=== PATIENT | female | born 1990 | race Caucasian/White ===

== ENCOUNTER 2016-07-02 21:13 | Emergency (ER) | payer MEDICAID ==
[2016-07-02] MEDS ORDERED: PREDNISONE 20 MG TABLET PO ONE (21:21)
[2016-07-02] MEDS ORDERED: FAMOTIDINE 20 MG TABLET PO ONE (21:21)
--- NOTE | 2016-07-02 21:21 | ER Document Report ---
ED Medical Screen (RME) - General Stated Complaint: RASH Time seen by provider: 21:18 Mode of Arrival: Ambulatory Information source: Patient Notes: 26-year-old female presents to ED for rash to the face neck and upper back since yesterday. Patient states she has not eaten or drank anything different and she has not taken any new medication. She denies use of any new products. (Last menstrual period 06/18/2016 I have greeted and performed a rapid initial assessment of this patient. A comprehensive ED assessment and evaluation of the patient, analysis of test results and completion of medical decision making process will be conducted by an additional ED providers. TRAVEL OUTSIDE OF THE [place] IN LAST 30 DAYS: No - Related Data Allergies/Adverse Reactions: cefixime [From Suprax] Allergy (Mild, Verified 05/30/16 12:16) Hives Past Medical History Pulmonary Medical History: Denies: Hx Asthma, Hx Tuberculosis Neurological Medical History: Denies: Hx Seizures Endocrine Medical History: Reports: Hx Hypothyroidism Past Surgical History: Reports: Hx Cholecystectomy - Immunizations Hx Diphtheria, Pertussis, Tetanus Vaccination: Yes
[2016-07-02] MEDS ORDERED: PREDNISONE 20 MG TABLET ONE (21:24)
--- NOTE | 2016-07-02 21:54 | ER Document Report ---
ED General - General Chief Complaint: Rash Stated Complaint: RASH Mode of Arrival: Ambulatory TRAVEL OUTSIDE OF THE [place] IN LAST 30 DAYS: No - HPI Patient complains to provider of: rash Notes: Patient coming in for evaluation of a rash rashes on the upper back face and chest started yesterday and has progressively spread patient states the rash is burning and itching denies any new contact with any new substances patient does state increased stress over the last 24-48 hours. Denies fevers chills nausea vomiting difficult in breathing - Related Data Allergies/Adverse Reactions: cefixime [From Suprax] Allergy (Mild, Verified 05/30/16 12:16) Hives Past Medical History - General Information source: Patient - Social History Smoking Status: Never Smoker Frequency of alcohol use: None Drug Abuse: None Family History: Reviewed & Not Pertinent Pulmonary Medical History: Denies: Hx Asthma, Hx Tuberculosis Neurological Medical History: Denies: Hx Seizures Endocrine Medical History: Reports: Hx Hypothyroidism Renal/ Medical History: Denies: Hx Peritoneal Dialysis Past Surgical History: Reports: Hx Cholecystectomy - Immunizations Hx Diphtheria, Pertussis, Tetanus Vaccination: Yes Review of Systems - Review of Systems Constitutional: No symptoms reported EENT: No symptoms reported Cardiovascular: No symptoms reported Respiratory: No symptoms reported Gastrointestinal: No symptoms reported Genitourinary: No symptoms reported Female Genitourinary: No symptoms reported Musculoskeletal: No symptoms reported Skin: Rash Hematologic/Lymphatic: No symptoms reported Neurological/Psychological: No symptoms reported -: Yes All other systems reviewed and negative Physical Exam - Vital signs Vitals: Temp Pulse Resp BP Pulse Ox 97.6 F 80 12 116/67 98 07/02/16 21:19 07/02/16 21:19 07/02/16 21:19 07/02/16 21:19 07/02/16 21:19 Interpretation: Normal - General General appearance: Appears well, Alert - HEENT Head: Normocephalic, Atraumatic Eyes: Normal Pupils: PERRL - Respiratory Respiratory status: No respiratory distress Chest status: Nontender Breath sounds: Normal Chest palpation: Normal - Cardiovascular Rhythm: Regular Heart sounds: Normal auscultation Murmur: No - Abdominal Inspection: Normal Distension: No distension Bowel sounds: Normal Tenderness: Nontender Organomegaly: No organomegaly - Back Back: Normal, Nontender - Extremities General upper extremity: Normal inspection, Nontender, Normal color, Normal ROM , Normal temperature General lower extremity: Normal inspection, Nontender, Normal color, Normal ROM , Normal temperature, Normal weight bearing. No: Jame's sign - Neurological Neuro grossly intact: Yes Cognition: Normal Orientation: AAOx4 [place] Coma Scale Eye Opening: Spontaneous [place] Coma Scale Verbal: Oriented [place] Coma Scale Motor: Obeys Commands [place] Coma Scale Total: 15 Speech: Normal Motor strength normal: LUE, RUE, LLE, RLE Sensory: Normal - Psychological Associated symptoms: Normal affect, Normal mood - Skin Skin Temperature: Warm Skin Moisture: Dry Skin Color: Normal, Other - Patient has a erythematous blanching rash sandpaper texture consistent with hives on her face upper back and upper chest. No oral involvement Course - Re-evaluation Re-evalutation: 07/02/16 21:54 Hives Unclear etiology possibly stress-induced patient will be treated with Vistaril or Atarax and prednisone. Patient discharged home. - Vital Signs Vital signs: Temp Pulse Resp BP Pulse Ox 97.6 F 80 12 116/67 98 07/02/16 21:19 07/02/16 21:19 07/02/16 21:19 07/02/16 21:19 07/02/16 21:19 Discharge - Discharge Clinical Impression: Rash Condition: Good Disposition: HOME, SELF-CARE Instructions: Acute Urticaria ([facility]) Additional Instructions: Follow-up with your primary care physician or physician provided. Return to ER symptoms worsen. Take medications as prescribed. You may also use topical Benadryl cream calamine lotion. If Benadryl and prescribed Atarax caused too much sedation caused to be too sleepy you may take nonsedating Zyrtec or Claritin as directed Prescriptions: Hydroxyzine HCl [Atarax 25 mg Tablet] 1 - 2 tab PO QID #25 tablet Prednisone [Deltasone 20 mg Tablet] 3 tab PO DAILY 5 Days Forms: Return to Work
[2016-07-02] MEDS ORDERED: HYDROXYZINE PAMOATE 25 MG CAPSULE #4 (ER DISP) PO SCH (22:00)
[2016-07-02 22:04] VITALS: BP 109/56
== END 2016-07-02 22:02 | disposition home or self-care (01) ==
LOC: ER 21:13
DX: R21 Rash and other nonspecific skin eruption (principal)
CPT/HCPCS: 99282; J3490 ×2; J7512

== ENCOUNTER 2016-07-30 09:34 | Day surgery (SDC) | payer MEDICAID ==
[2016-07-23 09:42] LABS: HEMATOCRIT 38.9 % (36.0-47.0); HEMOGLOBIN 13.2 g/dL (12.0-15.5); HGB HCT DIFFERENCE 0.7; MEAN CORPUSCULAR HEMOGLOBIN 30.8 pg (27.0-33.4); MEAN CORPUSCULAR HGB CONC 33.9 g/dL (32.0-36.0); MEAN CORPUSCULAR VOLUME 91 fl (80-97); RED BLOOD COUNT 4.28 10^6/uL (3.72-5.28); RED CELL DISTRIBUTION WIDTH 12.3 % (11.5-14.0); WHITE BLOOD COUNT 5.3 10^3/uL (4.0-10.5)
[2016-07-23 09:44] LABS: APPEARANCE,URINE CLEAR; BILIRUBIN,URINE NEGATIVE (NEGATIVE); GLUCOSE, URINE NEGATIVE (NEGATIVE); KETONES,URINE NEGATIVE (NEGATIVE); LEUKOCYTE ESTERASE,URINE TRACE (NEGATIVE); NITRITE,URINE NEGATIVE (NEGATIVE); PROTEIN,URINE NEGATIVE (NEGATIVE); URINE SPECIFIC GRAVITY 1.017; UROBILINOGEN,URINE NEGATIVE mg/dL (<2.0)
[2016-07-23 10:02] LABS: ANION GAP 10 (5-19); BLOOD UREA NITROGEN 17 mg/dL (7-20); CALCIUM 9.2 mg/dL (8.4-10.2); CARBON DIOXIDE 27 mmol/L (22-30); CHLORIDE 104 mmol/L (98-107); CREATININE RESULT 0.58 mg/dL (0.52-1.25); GLUCOSE 93 mg/dL (75-110); POTASSIUM 4.4 mmol/L (3.6-5.0); SODIUM 141.1 mmol/L (137-145)
[~2016-07-30 09:34] MED LIST: BUPIVACAINE HCL 0.5%-EPI 1:200000 INJ/PF 30 ML VIAL ONE; CEFAZOLIN 2 GM/D5W RTU 2 GM/50 ML RTUPB IV PRN; EPINEPHRINE INJ 30 MG/30 ML VIAL ONE; LACTATED RINGERS 1000 ML IV PRN; LIDOCAINE 0.5% INJ-PF (5 MG/ML) 50 ML SDV SUBCUT PRN; ONDANSETRON HCL INJ/PF 4 MG/2 ML SDV ONE; SUCCINYLCHOLINE CHLORIDE INJ 200 MG/10 ML VIAL ONE
[2016-07-30] MEDS ORDERED: EPINEPHRINE INJ/PF 1 MG/1 ML AMPULE ONE ×2 (09:41→14:02)
[2016-07-30] MEDS ORDERED: BUPIVACAINE HCL 0.5%-EPI 1:200000 INJ/PF 30 ML VIAL ONE (09:41)
[2016-07-30] MEDS ORDERED: HYDROMORPHONE HCL INJ/PF 2 MG/ML AMPULE ONE (12:11)
[2016-07-30] MEDS ORDERED: EPHEDRINE SULFATE INJ 50 MG/1 ML AMPULE ONE (12:11)
[2016-07-30] MEDS ORDERED: MIDAZOLAM 2 MG/2 ML INJ ONE (12:11)
[2016-07-30] MEDS ORDERED: FENTANYL CITRATE INJ/PF 250 MCG/5 ML AMPULE ONE (12:11)
[2016-07-30] MEDS ORDERED: ACETAMINOPHEN 100 ML IV ONE (12:12)
[2016-07-30] MEDS ORDERED: PROPOFOL INJ 200 MG/20 ML VIAL IV ONE (12:12)
[2016-07-30] MEDS ORDERED: FENTANYL CITRATE INJ/PF 100 MCG/2 ML AMPUL IV PRN ×3 (12:53)
[2016-07-30] MEDS ORDERED: OXYCODONE-ACETAMINOPHEN 5-325 MG TABLET PO PRN ×3 (12:53→16:30)
[2016-07-30] MEDS ORDERED: DIPHENHYDRAMINE HCL 50 MG/ML VIAL IV PRN (12:53)
[2016-07-30] MEDS ORDERED: PROMETHAZINE HCL INJ 25 MG/1 ML VIAL IV PRN ×2 (12:53)
[2016-07-30] MEDS ORDERED: MORPHINE SULFATE 10 MG/ML INJ IV PRN (12:53)
[2016-07-30] MEDS ORDERED: MEPERIDINE HCL/PF INJ 25 MG/1 ML DISP.SYRIN IV PRN (12:53)
[2016-07-30] MEDS: FENTANYL CITRATE INJ/PF 100 MCG/2 ML AMPUL ONE ×4 (15:03→15:35)
--- NOTE | 2016-07-30 15:08 | Operative Report ---
Operative Report DATE OF SURGERY: 07/30/16 PREOPERATIVE DIAGNOSIS: Right anterior cruciate ligament tear and lateral meniscus tear POSTOPERATIVE DIAGNOSIS: Same OPERATION: Right knee arthroscopy with anterior cruciate ligament reconstruction using Achilles allograft. Partial lateral meniscectomy SURGEON: NE COL[place]GA ANESTHESIA: GA TISSUE REMOVED OR ALTERED: None COMPLICATIONS: None ESTIMATED BLOOD LOSS: 10 mL PROCEDURE: Patient was brought to the operating room and successfully induced and intubated in a the supine position. Once the tube was secured a thigh tourniquet was applied to the right lower extremity was prepped and draped in a normal surgical fashion. Timeout was done identifying the right knee has a correct site. The extremity was exsanguinated with an Esmarch and then the tourniquet was inflated at 300 mmHg 0.25% of Marcaine was injected into the anticipated portal sites. 11 blade was used to establish the anterolateral portal. Scope was introduced and the capsule was distended with sterile saline solution. Under direct visualization the anteromedial portal sites was established first by applying a spinal needle and then established with the 11 blade. Probe was introduced and a diagnostic scope was done. And noted the patient had almost complete rupture of the anterior cruciate ligament with just a few strands attached. In the lateral compartment I was able to visualize just a small tear of the posterior horn allow meniscus. The remaining posterior horn was still attached to the root. At this point I used the combination of 5.5 mm shaver and 50 radiofrequency ablator to do my debridement of the torn anterior cruciate ligament and expose the lateral wall. I used a chondral pick to celina where I would like to place my femoral tunnel. This was confirmed with the medial [id number] guide. I flexed the knee as much as possible and use my spade tip guidepin and drilled through. I was able to measure about a 30 mm tunnel before I pierced the cortex and passed the pin through the lateral aspect of the thigh. I used the 10 mm low-profile reamer then to do my femoral tunnel and stopped at 25 mm in depth. I used a shaver then to clean out the bony debris. I visualized the tunnel with a camera and make sure had a back wall and did not pierced the lateral cortex. At this point I fed a FiberWire through the eyelet and passed it through the lateral aspect of the thigh. This FiberWire were then later on the shuttle through the tibial tunnel to shuttle the graft. In the meantime it was clamped outside the skin. At this point I grabbed my retro-cutter guide which was marked at [address] on the anterior cruciate ligament footprint on the tibial side. This had been cleaned off with a shaver and bur and radiofrequency ablator as well. I used the scope anterior horn of the lateral meniscus as a guide as well as 7 mm anterior to the PCL. Once I was happy with the placement I did a medial incision and measured the tibial tunnel to be 32 mm length. Once again I use the shaver to clean out the debris in the knee. The Achilles was preparing the back table and the made sure that I was able to pass through it 10 mm tunnel with the bone plug side and the tendinous portion. The graft had been placed in a moist sponge and ready for insertion once the tunnels were completed. I used a probe to grabbed the have the portion of the FiberWire suture that was left in the femoral tunnel and passed it through the tibial tunnel. At this point we shuttled the Achilles tendon allograft through the tibial tunnel into the femoral tunnel successfully using the bone plug to fit nicely in the femoral tunnel. I proceeded to notch the tunnel and placed a nitinol wire. I placed a 7 x 23mm bicomposite screw securing the bone plug in the femoral tunnel. I then turned my attention to the tibial tunnel where I notched it and then placed a nitinol wire for placement of the screw. While holding the leg in a reverse Wilson position by my integration assistant I pulled tension on the tibial side of the graft and placed my interference screw securing the graft. Wilson was used to showing good endpoint and minimal translation. Scope was introduced and I used a probe to check the tension on the anterior cruciate ligament graft. I was satisfied with the tension so at this point fluid was removed from the knee and the instruments were removed. I proceeded to close my 2 portal sites with 3-0 nylon and the tibial incision with 0 Vicryl to Vicryl and 2-0 nylon. Xeroform, 4 x 4, AVD pad, Sof-Rol was applied and then overwrapped with an Rian bandage. Tourniquet was let down and the drapes were removed. Patient was extubated and sent to PACU in stable condition.
--- NOTE | 2016-07-30 15:10 | PDOC DISCHARGE SUMMARY ---
Discharge Summary (SDC) - Discharge Final Diagnosis: Status post right anterior cruciate ligament reconstruction and partial lateral meniscectomy Date of Surgery: 07/30/16 Discharge Date: 07/30/16 Condition: Good Treatment or Instructions: Patient instructed to follow up in 10-14 days. Patient instructed to keep dressing dry clean and intact for 4 days and then allowed to remove. At that point patient can shower and apply Band-Aids as needed. Patient can weight-bear as tolerated and do range of motion exercises as tolerated. Crutches for support and safety. Can wean crutches once stable on his feet. Patient instructed to call the office if patient develops fevers chills redness and drainage from the surgical sites. Prescriptions: Oxycodone HCl/Acetaminophen [Percocet 5-325 mg Tablet] 1 - 2 tab PO ASDIR PRN # 60 tablet PRN Reason: Discharge Diet: As Tolerated Respiratory Treatments at Home: Deep Breathing/Coughing Discharge Activity: No Driving, No Lifting/Push/Pulling, Walk Frequently Adaptive Devices on Discharge: Axillary Crutches Report the Following to Your Physician Immediately: Shortness of Breath, Vomiting, Fever over 101 Degrees, Unusual Bleeding, Redness, Swelling, Warmth, Drainage-Yellow, Drainage-Green, Drainage-Foul Smelling
[2016-07-30] MEDS ORDERED: MORPHINE SULFATE 10 MG/ML INJ ONE (15:17)
[2016-07-30] MEDS ORDERED: ONDANSETRON HCL INJ/PF 4 MG/2 ML SDV ONE (15:59)
[2016-07-30] MEDS ORDERED: OXYCODONE-ACETAMINOPHEN 5-325 MG TABLET ONE (16:28)
[2016-07-30] MEDS ORDERED: PROMETHAZINE HCL INJ 25 MG/1 ML VIAL ONE (16:32)
[2016-07-30 18:27] VITALS: BP 126/64
== END 2016-07-30 18:15 | disposition home or self-care (01) ==
LOC: OROUT 09:34
PROVIDERS: ATTEND Orthopaedic Surgery
PROC: 0SBC4ZZ Excision of Right Knee Joint, Percutaneous Endoscopic Approach (ICD-10-PCS; 2016-07-30)
PROC: 0MUN4JZ Supplement Right Knee Bursa and Ligament with Synthetic Substitute, Percutaneous Endoscopic Approach (ICD-10-PCS; principal; 2016-07-30 11:45)
DX: S83.511D Sprain of anterior cruciate ligament of right knee, subsequent encounter (principal); S83.282D Other tear of lateral meniscus, current injury, left knee, subsequent encounter; X58.XXXD Exposure to other specified factors, subsequent encounter; Z88.1 Allergy status to other antibiotic agents
CPT/HCPCS: 36415; 85027; 81025; 80048; 81001; 29888; 29881; C1713; J2250; J3490; J0171; J3010 ×2; J2270; J1170; J2550; J0330; J2405; J2704; J0690; J0131; 1400

== ENCOUNTER 2016-09-27 01:06 | Emergency (ER) | payer MEDICAID ==
[2016-09-27] MEDS ORDERED: NORMAL SALINE 1000 ML 1,000 ML IV ONE (02:14)
[2016-09-27] MEDS ORDERED: ONDANSETRON HCL INJ/PF 4 MG/2 ML SDV IV ONE (02:16)
--- NOTE | 2016-09-27 02:16 | ER Document Report ---
ED General - General Chief Complaint: Abdominal Pain Stated Complaint: RIGHT SIDE ABDOMINAL PAIN Notes: Patient is a 26-year-old female presents with complaint of right lower quadrant abdominal pain. No fevers. Some vomiting. Some diarrhea. No blood or stool. Patient says she saw her doctor and to stay and she had some pain at that time but is very mild. She says pain is gradually worsened since Wednesday. No other complaints at this time. She denies any abnormal vaginal discharge or bleeding. No dysuria or urinary frequency. TRAVEL OUTSIDE OF THE [place] IN LAST 30 DAYS: No - Related Data Allergies/Adverse Reactions: cefixime [From Suprax] Allergy (Mild, Verified 07/23/16 08:28) Hives Past Medical History - Social History Smoking Status: Unknown if Ever Smoked Frequency of alcohol use: None Drug Abuse: None Family History: Reviewed & Not Pertinent - Past Medical History Cardiac Medical History: Denies: Hx Coronary Artery Disease, Hx Heart Attack, Hx Hypertension Pulmonary Medical History: Denies: Hx Asthma, Hx Bronchitis, Hx COPD, Hx Pneumonia, Hx Tuberculosis Neurological Medical History: Denies: Hx Cerebrovascular Accident, Hx Seizures Endocrine Medical History: Reports: Hx Hypothyroidism Renal/ Medical History: Denies: Hx Peritoneal Dialysis Musculoskeltal Medical History: Denies Hx Arthritis Past Surgical History: Reports: Hx Cholecystectomy - Immunizations Hx Diphtheria, Pertussis, Tetanus Vaccination: No Review of Systems - Review of Systems Notes: My Normal Review Basic REVIEW OF SYSTEMS: CONSTITUTIONAL : Denies fever, chills, or sweats. Denies recent illness. EENT: Denies eye, ear, throat, or mouth pain or symptoms. Denies nasal or sinus congestion. RESPIRATORY: Denies cough, cold, or chest congestion. Denies shortness of breath, difficulty breathing, or wheezing. GASTROINTESTINAL: Some right lower quadrant tenderness. Some vomiting and diarrhea. GENITOURINARY: Denies difficulty urinating, painful urination, burning, frequency, or blood in urine. FEMALE GENITOURINARY: Denies vaginal bleeding, abnormal or irregular periods. MUSCULOSKELETAL: Denies neck or back pain or joint pain or swelling. SKIN: Denies rash or skin lesions. NEUROLOGICAL: Denies altered mental status or loss of consciousness. Denies headache. Denies weakness or paralysis or loss of use of either side. Denies problems with gait or speech. Denies sensory or motor loss. ALL OTHER SYSTEMS REVIEWED AND NEGATIVE. Physical Exam - Vital signs Vitals: Temp Pulse Resp BP Pulse Ox 98.4 F 95 17 140/62 H 100 09/27/16 01:10 09/27/16 01:10 09/27/16 01:10 09/27/16 01:10 09/27/16 01:10 - Notes Notes: General Appearance: Well nourished, alert, cooperative, no acute distress, mild obvious discomfort. Well-appearing. Vitals: reviewed, See vital signs table. Head: no swelling or tenderness to the head Eyes: PERRL, EOMI, Conjuctiva clear Mouth: No decreasd moisture Lungs: No wheezing, No rales, No rhonci, No accessory muscle use, good air exchange bilaterally. Heart: Normal rate, Regular rythm, No murmur, no rub Abdomen: Normal BS, soft, No rigidity, mild lower quadrant abdominal tenderness to palpation, No guarding, no rebound, no abdominal masses, no organomegaly Extremities: strength 5/5 in all extremities, good pulses in all extremities, no swelling or tenderness in the extremities, no edema. Skin: warm, dry, appropriate color, no rash Neuro: speech clear, oriented x 3, normal affect, responds appropriately to questions. Course - Vital Signs Vital signs: Temp Pulse Resp BP Pulse Ox 98.2 F 80 14 113/52 L 96 09/27/16 04:14 09/27/16 04:14 09/27/16 04:14 09/27/16 04:14 09/27/16 04:14 - Laboratory Result Diagrams: 09/27/16 01:55 09/27/16 01:55 Laboratory results interpreted by me: 09/27/16 09/27/16 09/27/16 01:55 01:55 03:28 Hgb 11.7 L Hct 33.7 L Sodium 146.1 H Potassium 3.1 L Carbon Dioxide 31 H AST 42 H ALT 63 H Urine Ketones TRACE H Ur Leukocyte Esterase LARGE H - Transfer of Care Notes: 09/27/16 05:44 Since abdomen is minimally tender to palpation reevaluation. Her pain is in the right lower quadrant that is mild. She has no leukocytosis. I think appendicitis is unlikely being that the patient has had the pain for 6 days now and still has no leukocytosis or fever. This would be highly unlikely for appendicitis. Urinalysis does show large look slightest trace. This could be a contaminant or could be signs of UTI. I informed her we'll place her anabolic for this. I talked about the options for treatment him T workup for abdominal pain. Did tell her that we could do a CT scan today to further will appendicitis; however, I informed her I think his appendicitis is unlikely and that the skin would be a large amount of radiation to her at such young age. Informed her the other option would be to return to ER in one to 2 days for close reevaluation if she continued to have any pain. Patient agrees with going home and she wants to return for reevaluation. I encourage return to ER immediately if she has worsening pain, fevers, or feels unwell. Patient agrees with plan and will be discharged home. Dictation of this chart was performed using voice recognition software; therefore, there may be some unintended grammatical errors. Discharge - Discharge Clinical Impression: Pyuria Abdominal pain Qualifiers: Abdominal location: right lower quadrant Qualified Code(s): R10.31 - Right lower quadrant pain Condition: Good Disposition: HOME, SELF-CARE Additional Instructions: Observation for Appendicitis At this time, the abdominal pain does not seem to be appendicitis. Our next "test" will be passage of time. If you have early appendicitis, signs will appear to help us make the diagnosis. Most of the time, the pain goes away. In these cases, the pain is usually due to a virus in the lymph glands near the appendix, or due to an ovarian cyst or ovulation. Unless the pain is gone, you should come back for a recheck. This is usually done in 24- 48 hours. Be sure you understand your follow-up instructions. Come back immediately if: (1) the pain becomes much more severe and sharply increases with movement or coughing, (2) vomiting becomes frequent, (3) there is blood in the vomit, urine, or bowel movements, (4) there are shaking chills or fever, or (5) the abdomen becomes more distended or swollen. Please return to ER immediately if you have fevers, worsening pain, or recurrent vomiting. If you still have pain after 24-48 hours, it is important that you return to the ER for reevaluation. Please take antibiotics as prescribed. Prescriptions: Ciprofloxacin HCl [Cipro 500 mg Tablet] 500 mg PO BID #10 tablet Ondansetron [Zofran Odt 4 mg Tablet] 1 tab PO Q4H PRN #15 tab.rapdis PRN Reason: For Nausea/Vomiting
[2016-09-27 02:50] LABS: ABSOLUTE LYMPHOCYTES (AUTO) 1.9 10^3/uL (0.5-4.7); ABSOLUTE MONOCYTES (AUTO) 0.3 10^3/uL (0.1-1.4); BASOPHILS % (AUTO) 0.3 % (0-2); EOSINOPHILS % (AUTO) 0.7 % (0-6); HEMATOCRIT 33.7 % (36.0-47.0); HEMOGLOBIN 11.7 g/dL (12.0-15.5); HGB HCT DIFFERENCE 1.4; LYMPHOCYTES % (AUTO) 35.4 % (13-45); MEAN CORPUSCULAR HEMOGLOBIN 31.2 pg (27.0-33.4); MEAN CORPUSCULAR HGB CONC 34.8 g/dL (32.0-36.0); MEAN CORPUSCULAR VOLUME 90 fl (80-97); MONOCYTES % (AUTO) 6.5 % (3-13); RED BLOOD COUNT 3.76 10^6/uL (3.72-5.28); RED CELL DISTRIBUTION WIDTH 11.9 % (11.5-14.0); SEGMENTED NEUTROPHILS % (AUTO) 57.1 % (42-78); WHITE BLOOD COUNT 5.2 10^3/uL (4.0-10.5)
[2016-09-27 03:12] LABS: ALANINE AMINOTRANSFERASE 63 U/L (9-52); ALKALINE PHOSPHATASE 67 U/L (38-126); ANION GAP 9 (5-19); ASPARTATE AMINO TRANSFERASE 42 U/L (14-36); BILIRUBIN,DIRECT 0.3 mg/dL (0.0-0.4); BILIRUBIN,TOTAL 0.5 mg/dL (0.2-1.3); BLOOD UREA NITROGEN 13 mg/dL (7-20); CALCIUM 8.8 mg/dL (8.4-10.2); CARBON DIOXIDE 31 mmol/L (22-30); CHLORIDE 106 mmol/L (98-107); CREATININE RESULT 0.58 mg/dL (0.52-1.25); GLUCOSE 100 mg/dL (75-110); POTASSIUM 3.1 mmol/L (3.6-5.0); SODIUM 146.1 mmol/L (137-145); TOTAL PROTEIN 6.9 g/dL (6.3-8.2)
[2016-09-27 03:50] LABS: APPEARANCE,URINE CLOUDY; BILIRUBIN,URINE NEGATIVE (NEGATIVE); GLUCOSE, URINE NEGATIVE (NEGATIVE); KETONES,URINE TRACE mg/dL (NEGATIVE); LEUKOCYTE ESTERASE,URINE LARGE (NEGATIVE); NITRITE,URINE NEGATIVE (NEGATIVE); PROTEIN,URINE NEGATIVE (NEGATIVE); URINE SPECIFIC GRAVITY 1.009; UROBILINOGEN,URINE NEGATIVE mg/dL (<2.0)
[2016-09-27] MEDS ORDERED: POTASSIUM CHLORIDE 10 MEQ TABLET.SA PO ONE (03:59)
[2016-09-27 04:19] VITALS: BP 113/52
== END 2016-09-27 04:19 | disposition home or self-care (01) ==
LOC: ER 01:06
DX: N39.0 Urinary tract infection, site not specified (principal); R10.31 Right lower quadrant pain; R11.10 Vomiting, unspecified; R19.7 Diarrhea, unspecified; Z88.1 Allergy status to other antibiotic agents; Z90.49 Acquired absence of other specified parts of digestive tract
CPT/HCPCS: 99284; 96361; 96374; 36415; 84703; 85025; 80053; 81001; J2405; J7030

== ENCOUNTER 2017-03-24 11:13 | Emergency (ER) | payer MEDICAID ==
[2017-03-24] MEDS ORDERED: BENZONATATE 100 MG CAPSULE PO ONE (11:46)
--- NOTE | 2017-03-24 12:22 | RADIOLOGY REPORT (SQ) ---
EXAM DESCRIPTION: CHEST PA/LAT COMPLETED DATE/TIME: 03/24/2017 12:07 pm REASON FOR STUDY: cough/sob COMPARISON: Toe view chest 09/17/2009 EXAM PARAMETERS: NUMBER OF VIEWS: two views TECHNIQUE: Digital Frontal and Lateral radiographic views of the chest acquired. RADIATION DOSE: NA LIMITATIONS: none FINDINGS: LUNGS AND PLEURA: No opacities, masses or pneumothorax. No pleural effusion. MEDIASTINUM AND HILAR STRUCTURES: No masses or contour abnormalities. HEART AND VASCULAR STRUCTURES: Heart normal size. No evidence for failure. BONES: No acute findings. HARDWARE: Clips right upper quadrant post cholecystectomy true OTHER: No other significant finding. IMPRESSION: NO SIGNIFICANT RADIOGRAPHIC FINDING IN THE CHEST. TECHNICAL DOCUMENTATION: JOB ID: [id number] [email or web address]- All Rights Reserved
--- NOTE | 2017-03-24 12:50 | ER Document Report ---
ED General - General Chief Complaint: Cough Stated Complaint: COUGH Time Seen by Provider: 03/24/17 11:37 Mode of Arrival: Ambulatory Information source: Patient Notes: Patient presents with cough cold and congestion for 2-3 days. She is also had some subjective fever and chills. She has got some sharp bilateral chest pain. It is worse with coughing or moving. It is moderate in intensity. It is constant. Some nausea but no vomiting or diarrhea. TRAVEL OUTSIDE OF THE [place] IN LAST 30 DAYS: No - Related Data Allergies/Adverse Reactions: cefixime [From Suprax] Allergy (Mild, Verified 07/23/16 08:28) Hives Past Medical History - Social History Smoking Status: Never Smoker Chew tobacco use (# tins/day): No Frequency of alcohol use: None Drug Abuse: None Family History: Reviewed & Not Pertinent - Past Medical History Cardiac Medical History: Denies: Hx Coronary Artery Disease, Hx Heart Attack, Hx Hypertension Pulmonary Medical History: Denies: Hx Asthma, Hx Bronchitis, Hx COPD, Hx Pneumonia, Hx Tuberculosis Neurological Medical History: Denies: Hx Cerebrovascular Accident, Hx Seizures Endocrine Medical History: Reports: Hx Hypothyroidism Renal/ Medical History: Denies: Hx Peritoneal Dialysis Musculoskeltal Medical History: Denies Hx Arthritis Past Surgical History: Reports: Hx Cholecystectomy - Immunizations Hx Diphtheria, Pertussis, Tetanus Vaccination: No Review of Systems - Review of Systems Constitutional: Chills, Fever, Malaise Cardiovascular: Chest pain, Dyspnea Respiratory: Cough, Sputum Gastrointestinal: denies: Diarrhea, Vomiting Physical Exam - Vital signs Vitals: Temp Pulse Resp BP Pulse Ox 98.4 F 81 15 126/67 H 98 03/24/17 11:15 03/24/17 11:15 03/24/17 11:15 03/24/17 11:15 03/24/17 11:15 Interpretation: Normal - General General appearance: Appears well, Alert - HEENT Head: Normocephalic, Atraumatic Eyes: Normal Pupils: PERRL - Respiratory Respiratory status: No respiratory distress Chest status: Nontender Breath sounds: Normal Chest palpation: Normal - Cardiovascular Rhythm: Regular Heart sounds: Normal auscultation Murmur: No - Abdominal Inspection: Normal Distension: No distension Bowel sounds: Normal Tenderness: Nontender Organomegaly: No organomegaly - Back Back: Normal, Nontender - Extremities General upper extremity: Normal inspection, Nontender, Normal color, Normal ROM , Normal temperature General lower extremity: Normal inspection, Nontender, Normal color, Normal ROM , Normal temperature, Normal weight bearing. No: Jame's sign - Neurological Neuro grossly intact: Yes Cognition: Normal Orientation: AAOx4 [place] Coma Scale Eye Opening: Spontaneous [place] Coma Scale Verbal: Oriented [place] Coma Scale Motor: Obeys Commands [place] Coma Scale Total: 15 Speech: Normal Motor strength normal: LUE, RUE, LLE, RLE Sensory: Normal - Psychological Associated symptoms: Normal affect, Normal mood - Skin Skin Temperature: Warm Skin Moisture: Dry Skin Color: Normal Course - Vital Signs Vital signs: Temp Pulse Resp BP Pulse Ox 98.8 F 83 18 122/65 99 03/24/17 12:54 03/24/17 12:54 03/24/17 12:54 03/24/17 12:54 03/24/17 12:54 - Diagnostic Test Radiology reviewed: Reports reviewed - xray unremarkable Discharge - Discharge Clinical Impression: Upper respiratory infection Condition: Stable Disposition: HOME, SELF-CARE Instructions: Acetaminophen, Fever ([facility]), Upper Respiratory Illness ([facility]) Additional Instructions: please follow up with your primary doctor as soon as possible Your blood pressure is slightly elevated, please have this rechecked within the next week Prescriptions: Benzonatate [Tessalon Perle 100 mg Capsule] 200 mg PO Q8HP PRN #40 cap PRN Reason: Amoxicillin 500 mg PO TID #21 capsule Clarithromycin [Biaxin 500 mg Tablet] 1 tab PO Q12 #14 tab Hydrocodone/Acetaminophen [Clare 5-325 mg Tablet] 1 tab PO Q6 #12 tablet Forms: Elevated Blood Pressure, Return to Work Referrals: OWEN CANCHOLA MD [COMMUNITY BASED STAFF] - Follow up as needed
[2017-03-24 12:55] VITALS: BP 122/65
== END 2017-03-24 12:56 | disposition home or self-care (01) ==
LOC: ER 11:13
DX: J06.9 Acute upper respiratory infection, unspecified (principal); R05 Cough; R09.81 Nasal congestion; R50.9 Fever, unspecified; R11.0 Nausea
CPT/HCPCS: 71020; 99283

== ENCOUNTER 2017-12-26 21:50 | Emergency (ER) | payer SELFPAY ==
--- NOTE | 2017-12-26 22:19 | RADIOLOGY REPORT (SQ) ---
EXAM DESCRIPTION: ELBOW RIGHT OVER 2 VIEWS COMPLETED DATE/TIME: 12/26/2017 10:07 pm REASON FOR STUDY: Pain s/p fall COMPARISON: None. NUMBER OF VIEWS: Four views. TECHNIQUE: AP, lateral, and both oblique radiographic images acquired of the right elbow. LIMITATIONS: None. FINDINGS: MINERALIZATION: Normal. BONES: No acute fracture or dislocation. No worrisome bone lesions. JOINT: No effusion. SOFT TISSUES: No soft tissue swelling. No foreign body. OTHER: No other significant finding. IMPRESSION: NO RADIOGRAPHIC EVIDENCE OF ACUTE INJURY. TECHNICAL DOCUMENTATION: JOB ID: [id number] [employer]- All Rights Reserved Reading location - IP/workstation name: [email or web address]
--- NOTE | 2017-12-26 22:21 | RADIOLOGY REPORT (SQ) ---
EXAM DESCRIPTION: WRIST RIGHT 3 VIEWS COMPLETED DATE/TIME: 12/26/2017 10:07 pm REASON FOR STUDY: Pain s/p fall COMPARISON: None. NUMBER OF VIEWS: Three views. TECHNIQUE: AP, lateral, and oblique radiographic images acquired of the right wrist. LIMITATIONS: None. FINDINGS: MINERALIZATION: Normal. BONES: No acute fracture or dislocation. No worrisome bone lesions. Normal alignment. SOFT TISSUES: No soft tissue swelling. No foreign body. OTHER: No other significant finding. IMPRESSION: NO RADIOGRAPHIC EVIDENCE OF ACUTE INJURY. TECHNICAL DOCUMENTATION: JOB ID: [id number] [place]-72 2010 [employer]- All Rights Reserved Reading location - IP/workstation name: [email or web address]
[2017-12-26] MEDS ORDERED: HYDROCODONE/ACETAMINOPHEN 5-325 MG TABLET PO ONE (22:53)
--- NOTE | 2017-12-26 22:53 | ER Document Report ---
ED Extremity Problem, Upper - General Chief Complaint: Arm Injury Stated Complaint: FALL,WRIST AND ELBOW PAIN Time Seen by Provider: 12/26/17 22:38 Mode of Arrival: Ambulatory Information source: Patient Notes: Pt is a 27 year old female who presents to the ER today for right wrist/forearm pain after falling at home, tripping on something on her floor, and reaching her right hand to her side/backwards to catch herself as she fell. She states it 's hard for her to extend her elbow completely because of pain. She denies any numbness/tingling. TRAVEL OUTSIDE OF THE [place] IN LAST 30 DAYS: No - Related Data Allergies/Adverse Reactions: cefixime [From Suprax] Allergy (Mild, Verified 07/23/16 08:28) Hives Past Medical History - General Information source: Patient - Social History Smoking Status: Unknown if Ever Smoked Family History: Reviewed & Not Pertinent Patient has suicidal ideation: No Patient has homicidal ideation: No - Past Medical History Cardiac Medical History: Denies: Hx Coronary Artery Disease, Hx Heart Attack, Hx Hypertension Pulmonary Medical History: Denies: Hx Asthma, Hx Bronchitis, Hx COPD, Hx Pneumonia, Hx Tuberculosis Neurological Medical History: Denies: Hx Cerebrovascular Accident, Hx Seizures Endocrine Medical History: Reports: Hx Hypothyroidism Renal/ Medical History: Denies: Hx Peritoneal Dialysis Musculoskeletal Medical History: Denies Hx Arthritis Past Surgical History: Reports: Hx Cholecystectomy - Immunizations Hx Diphtheria, Pertussis, Tetanus Vaccination: No Review of Systems - Review of Systems Constitutional: No symptoms reported EENT: No symptoms reported Cardiovascular: No symptoms reported Respiratory: No symptoms reported Gastrointestinal: No symptoms reported Genitourinary: No symptoms reported Female Genitourinary: No symptoms reported Musculoskeletal: See HPI Skin: No symptoms reported Hematologic/Lymphatic: No symptoms reported Neurological/Psychological: No symptoms reported Physical Exam - Vital signs Vitals: Temp Pulse Resp BP Pulse Ox 99.1 F 72 16 109/60 98 12/26/17 22:13 12/26/17 22:13 12/26/17 22:13 12/26/17 22:13 12/26/17 22:13 - Notes Notes: PHYSICAL EXAMINATION: GENERAL:uncomfortable appearing, holding right arm, but in no acute distress. HEAD: Atraumatic, normocephalic. EYES: Pupils equal round and reactive to light, extraocular movements intact, sclera anicteric, conjunctiva are normal. ENT: ear canals without erythema or foreign body, TMs pearly reeves with good bony landmarks, nares normal, oropharynx clear without exudates. Moist mucous membranes. NECK: Normal range of motion, supple without lymphadenopathy LUNGS: CTAB and equal. No wheezes rales or rhonchi. HEART: Regular rate and rhythm without murmurs NEUROLOGICAL: Cranial nerves grossly intact. Normal sensory/motor exams. extremities: right olecranon process tenderness, right forearm tenderness entirely, right dorsal wrist tenderness, no edema/erythema or ecchymoses, good instructor psychiatric aide strength, good capillary refill <3 seconds, normal sensation PSYCH: Normal mood, normal affect. SKIN: Warm, Dry, normal turgor, no rashes or lesions noted Course - Re-evaluation Re-evalutation: 12/27/17 16:30 wrist and elbow x ray negative for any acute pathology. - Vital Signs Vital signs: Temp Pulse Resp BP Pulse Ox 98.5 F 65 18 116/65 97 12/26/17 23:07 12/26/17 23:07 12/26/17 23:07 12/26/17 23:07 12/26/17 23:07 Discharge - Discharge Clinical Impression: Elbow injury Qualifiers: Encounter type: initial encounter Laterality: right Qualified Code(s): S59.901A - Unspecified injury of right elbow, initial encounter Wrist injury Qualifiers: Encounter type: initial encounter Laterality: right Qualified Code(s): S69.91XA - Unspecified injury of right wrist, hand and finger(s), initial encounter Condition: Stable Disposition: HOME, SELF-CARE Additional Instructions: Return immediately for any new or worsening symptoms. Follow up with primary care provider, call tomorrow to make followup appointment. Prescriptions: Ibuprofen [Motrin 800 mg Tablet] 800 mg PO Q8H PRN #30 tab PRN Reason: Forms: Return to Work
[2017-12-26 23:42] VITALS: BP 116/65
== END 2017-12-26 23:11 | disposition home or self-care (01) ==
LOC: ER 21:50
DX: S69.91XA Unspecified injury of right wrist, hand and finger(s), initial encounter (principal); S59.901A Unspecified injury of right elbow, initial encounter; W01.0XXA Fall on same level from slipping, tripping and stumbling without subsequent striking against object, initial encounter; Y92.009 Unspecified place in unspecified non-institutional (private) residence as the place of occurrence of the external cause; Z88.1 Allergy status to other antibiotic agents
CPT/HCPCS: 99283

== ENCOUNTER 2018-03-15 13:33 | Emergency (ER) | payer SELFPAY ==
--- NOTE | 2018-03-15 14:23 | ER Document Report ---
ED Medical Screen (RME) - General Chief Complaint: Abdominal Pain Stated Complaint: ABDOMINAL PAIN Time Seen by Provider: 03/15/18 14:20 Mode of Arrival: Ambulatory Information source: Patient Notes: 28-year-old female presents with complaint of left upper quadrant abdominal pain , nausea, vomiting, diarrhea that started 1 week prior to arrival. Patient admits to subjective fever. She is currently menstruating. She has a surgical history of cholecystectomy. I have greeted and performed a rapid initial assessment of this patient. A comprehensive ED assessment and evaluation of the patient, analysis of test results and completion of medical decision making process we will be contacted by additional ED providers. PHYSICAL EXAMINATION: Vital signs reviewed GENERAL: ill-appearing, well-nourished and in no acute distress. LUNGS: No respiratory distress Musculoskeletal: Normal range of motion NEUROLOGICAL: Normal speech, normal gait. PSYCH: Normal mood, normal affect. SKIN: Warm, Dry, normal turgor, no rashes or lesions noted. TRAVEL OUTSIDE OF THE [place] IN LAST 30 DAYS: No - HPI Onset: Last week Onset/Duration: Constant Quality of pain: Throbbing Severity: Mild Associated Symptoms: Diarrhea, Nausea, Vomiting Exacerbated by: Denies Relieved by: Denies Similar symptoms previously: No Recently seen / treated by doctor: No - Related Data Smoking: Non-smoker Frequency of alcohol use: None Drug Abuse: None Allergies/Adverse Reactions: cefixime [From Suprax] Allergy (Mild, Verified 03/15/18 14:22) Hives Past Medical History - Social History Chew tobacco use (# tins/day): No Frequency of alcohol use: Occasional Drug Abuse: None - Past Medical History Cardiac Medical History: Denies: Hx Coronary Artery Disease, Hx Heart Attack, Hx Hypertension Pulmonary Medical History: Denies: Hx Asthma, Hx Bronchitis, Hx COPD, Hx Pneumonia, Hx Tuberculosis Neurological Medical History: Denies: Hx Cerebrovascular Accident, Hx Seizures Endocrine Medical History: Reports: Hx Hypothyroidism Renal/ Medical History: Denies: Hx Peritoneal Dialysis Musculoskeltal Medical History: Denies Hx Arthritis Past Surgical History: Reports: Hx Cholecystectomy, Hx Orthopedic Surgery - acl - Immunizations Hx Diphtheria, Pertussis, Tetanus Vaccination: No Physical Exam - Vital signs Vitals: Temp Pulse Resp BP Pulse Ox 98.8 F 55 L 16 119/69 99 03/15/18 13:55 03/15/18 13:55 03/15/18 13:55 03/15/18 13:55 03/15/18 13:55 Course - Vital Signs Vital signs: Temp Pulse Resp BP Pulse Ox 98.8 F 55 L 16 119/69 99 03/15/18 13:55 03/15/18 13:55 03/15/18 13:55 03/15/18 13:55 03/15/18 13:55
[2018-03-15] MEDS ORDERED: ONDANSETRON 4 MG TAB.RAPDIS PO ONE ×2 (14:24→17:14)
[2018-03-15 14:57] LABS: ABSOLUTE EOSINOPHILS # (AUTO) 0.1 10^3/uL (0.0-0.6); ABSOLUTE MONOCYTES (AUTO) 0.4 10^3/uL (0.1-1.4); BASOPHILS % (AUTO) 0.5 % (0-2); EOSINOPHILS % (AUTO) 1.5 % (0-6); HEMATOCRIT 37.5 % (36.0-47.0); HEMOGLOBIN 13.2 g/dL (12.0-15.5); LYMPHOCYTES % (AUTO) 36.4 % (13-45); MEAN CORPUSCULAR HEMOGLOBIN 30.8 pg (27.0-33.4); MEAN CORPUSCULAR HGB CONC 35.1 g/dL (32.0-36.0); MEAN CORPUSCULAR VOLUME 88 fl (80-97); PLATELET COUNT 356 10^3/uL (150-450); RED BLOOD COUNT 4.28 10^6/uL (3.72-5.28); SEGMENTED NEUTROPHILS % (AUTO) 54.6 % (42-78); TOTAL CELLS COUNTED % (AUTO) 100 %; WHITE BLOOD COUNT 5.5 10^3/uL (4.0-10.5)
[2018-03-15 15:14] LABS: APPEARANCE,URINE SLIGHTLY-CLOUDY; BILIRUBIN,URINE NEGATIVE (NEGATIVE); GLUCOSE, URINE NEGATIVE (NEGATIVE); KETONES,URINE TRACE mg/dL (NEGATIVE); LEUKOCYTE ESTERASE,URINE NEGATIVE (NEGATIVE); NITRITE,URINE NEGATIVE (NEGATIVE); PROTEIN,URINE 30 mg/dL (NEGATIVE); URINE SPECIFIC GRAVITY 1.032; UROBILINOGEN,URINE NEGATIVE mg/dL (<2.0)
[2018-03-15 15:17] LABS: ALANINE AMINOTRANSFERASE 40 U/L (9-52); ALBUMIN 4.2 g/dL (3.5-5.0); ALKALINE PHOSPHATASE 64 U/L (38-126); ANION GAP 9 (5-19); ASPARTATE AMINO TRANSFERASE 33 U/L (14-36); BILIRUBIN,DIRECT 0.4 mg/dL (0.0-0.4); BILIRUBIN,TOTAL 0.7 mg/dL (0.2-1.3); BLOOD UREA NITROGEN 10 mg/dL (7-20); CALCIUM 9.1 mg/dL (8.4-10.2); CARBON DIOXIDE 29 mmol/L (22-30); CHLORIDE 101 mmol/L (98-107); COLOR,URINE YELLOW; GLUCOSE 94 mg/dL (75-110); LIPASE 107.3 U/L (23-300); POTASSIUM 3.1 mmol/L (3.6-5.0); SODIUM 138.5 mmol/L (137-145); TOTAL PROTEIN 7.5 g/dL (6.3-8.2)
[2018-03-15] MEDS ORDERED: POTASSIUM CHLORIDE 10 MEQ CAPSULE.ER PO ONE (15:50)
[2018-03-15] MEDS ORDERED: NORMAL SALINE 1000 ML 1,000 ML IV ONE (15:51)
--- NOTE | 2018-03-15 15:59 | ER Document Report ---
ED GI/ - General Chief Complaint: Abdominal Pain Stated Complaint: ABDOMINAL PAIN Time Seen by Provider: 03/15/18 14:20 Mode of Arrival: Ambulatory Notes: Patient says that she is been having vomiting and diarrhea and abdominal pain since last . She is having about 4-5 episodes of vomiting a day and probably as many episodes or more of diarrhea. No blood present in either vomitus or stools. She has pain in the mid, central, and epigastric region of her abdomen. Has had chills and shakes, but does not know if she has had an actual fever. Denies any UTI symptoms. There is a coworker who is been out of work as well, but she does not know if she has the same GI symptoms. Patient has had her gallbladder removed. Currently on no prescription medications. Patient was given Zofran 8 mg in triage and she says her nausea is better now. TRAVEL OUTSIDE OF THE [place] IN LAST 30 DAYS: No - Related Data Allergies/Adverse Reactions: cefixime [From Suprax] Allergy (Mild, Verified 03/15/18 14:22) Hives Past Medical History - General Information source: Patient - Social History Smoking Status: Never Smoker Chew tobacco use (# tins/day): No Frequency of alcohol use: Occasional Drug Abuse: None Family History: Reviewed & Not Pertinent Patient has suicidal ideation: No Patient has homicidal ideation: No - Past Medical History Cardiac Medical History: Denies: Hx Coronary Artery Disease, Hx Heart Attack, Hx Hypertension Pulmonary Medical History: Denies: Hx Asthma, Hx Bronchitis, Hx COPD, Hx Pneumonia, Hx Tuberculosis Neurological Medical History: Denies: Hx Cerebrovascular Accident, Hx Seizures Endocrine Medical History: Reports: Hx Hypothyroidism Renal/ Medical History: Denies: Hx Peritoneal Dialysis Musculoskeletal Medical History: Denies Hx Arthritis Past Surgical History: Reports: Hx Cholecystectomy, Hx Orthopedic Surgery - acl - Immunizations Hx Diphtheria, Pertussis, Tetanus Vaccination: No Review of Systems - Review of Systems Notes: REVIEW OF SYSTEMS: CONSTITUTIONAL : Not sure if any fever. EENT: Denies eye, ear, nose or mouth or throat pain or other symptoms. CARDIOVASCULAR: Denies chest pain. RESPIRATORY: Denies cough, chest congestion, or shortness of breath. GASTROINTESTINAL: See HPI. GENITOURINARY: Denies difficulty or painful urinating, urinary frequency, blood in urine. MUSCULOSKELETAL: Denies back or neck pain. Denies joint pain or swelling. SKIN: Denies rash or skin lesions. NEUROLOGICAL: Denies LOC or altered mental status. Denies headache. Denies sensory loss or motor deficits. ALL OTHER SYSTEMS REVIEWED AND NEGATIVE. Physical Exam - Vital signs Vitals: Temp Pulse Resp BP Pulse Ox 98.8 F 55 L 16 119/69 99 03/15/18 13:55 03/15/18 13:55 03/15/18 13:55 03/15/18 13:55 03/15/18 13:55 Interpretation: Normal, Bradycardic - Heart rate 55 - Notes Notes: PHYSICAL EXAMINATION: GENERAL: Well-appearing, in no acute distress. Vital signs all normal. HEAD: Atraumatic, normocephalic. NECK: Normal range of motion, supple. LUNGS: Breath sounds clear and equal bilaterally. HEART: Regular rate and rhythm without murmurs. ABDOMEN: Soft, nontender. No guarding or rebound. No masses. BACK: No tenderness throughout entire back. EXTREMITIES: Normal range of motion without pain. NEUROLOGICAL: Normal speech, normal gait. Normal sensory, motor, and reflex exams. Awake, alert, and oriented x3. Cranial nerves normal. PSYCH: Normal mood, normal affect. SKIN: Warm, dry, no rashes. Course - Re-evaluation Re-evalutation: 03/15/18 15:58 Labs are suggestive of patient being somewhat dehydrated. Also, her potassium is slightly low at 3.1. I am going to give her a liter of saline, some potassium p.o., and discharged with Zofran. - Vital Signs Vital signs: Temp Pulse Resp BP Pulse Ox 98.0 F 51 L 16 91/50 L 98 03/15/18 16:28 03/15/18 16:28 03/15/18 16:28 03/15/18 16:28 03/15/18 16:28 - Laboratory Result Diagrams: 03/15/18 14:25 03/15/18 14:25 Laboratory results interpreted by me: 03/15/18 03/15/18 14:25 14:25 Potassium 3.1 L Urine Protein 30 H Urine Ketones TRACE H Urine Blood SMALL H Discharge - Discharge Clinical Impression: Vomiting and diarrhea, Abdominal pain, Hypokalemia, Dehydration Condition: Stable Disposition: HOME, SELF-CARE Additional Instructions: VOMITING: Vomiting (or nausea without vomiting) can be caused by many other different problems. It can mean that something's wrong with the stomach, such as ulcers or inflammation or the intestinal tract, such as appendicitis. But it can also be a symptom of a problem that has nothing to do with the stomach or intestines. Vomiting is common with severe headaches, earaches, tonsillitis, and kidney infections, etc. We see it with pneumonia or heart attacks. Drugs can cause nausea and vomiting. Many abdominal problems cause vomiting; for example, gallstones, kidney stones, pancreatitis, and intestinal obstruction ( blocked bowels). In most cases, curing the vomiting depends on fixing the problem that caused it. For temporary relief, we may use an anti-nausea medicine. For home use, we can prescribe suppositories, chewable pills, pills that dissolve in the mouth, or liquid anti-nausea drugs. If the vomiting seems to be caused by a problem in the stomach, acid-suppressing drugs may be prescribed as well. It's important to avoid dehydration. Sip small amounts of clear liquids ( soft drinks, tea, broth, etc) . Try to take fluids frequently even if you are vomiting to prevent dehydration. Take increasing amounts of fluid and when liquids are being consumed successfully, advance to small amounts of bland food (toast, soups, mashed potatoes, etc.) until you are able to resume a regular diet. Avoid aspirin, tobacco, and alcohol. If the vomiting worsens, if the problem that's making you vomit worsens, or if there's evidence of bleeding in the stomach (such as black, tarry stool, or bloody or black vomit), you should return immediately. Also, return if abdominal pain worsens or becomes localized to one area or you develop high fever. Call your doctor if you aren't improved in 24 hours. DIARRHEA, NON-SPECIFIC: Diarrhea means frequent, watery stools. There are many causes. Any problem that keeps the intestinal tract from absorbing water from the stool can lead to diarrhea. A sudden new diarrhea problem is usually caused by a virus, food sensitivity, toxic bacteria, or drugs. In this case, we expect the problem to go away soon. Testing is done only if you seem seriously ill from the diarrhea. If you have chronic diarrhea, or diarrhea that keeps coming back, we need to find out why. Chronic diarrhea can be due to inflammation of the bowels such as Crohn's disease or ulcerative colitis, food sensitivity such as intolerance to lactose or wheat protein, irritable bowel syndrome, and other problems. If your diarrhea is a significant problem but it's not clear why you have it, we' ll refer you to a specialist for further testing. During an episode of diarrhea, drink small amounts (two to six ounces) of clear liquids (soft drinks, sport drinks, herb teas, broth, etc). Take fluids frequently to prevent dehydration. It's usually not a problem to take mild anti- diarrhea medication such as Kaopectate or Pepto-Bismol. As the diarrhea eases, advance to small amounts of bland food (mashed potato, toast) for 24 hours. Call the physician if blood appears in your vomit or stool, if vomiting lasts longer than 24 hours, if the abdominal pain worsens or becomes localized to one area, if you develop high fever, or if you become lightheaded and weak. VIRAL SYNDROME: The physician has diagnosed a viral infection. Viruses not only cause "colds," but can cause many different symptoms including generalized aching, fever, headache, cough, diarrhea, nausea, vomiting, and fatigue. The treatment, for the most part, is simply relief of symptoms. This means that antibiotics are usually not given. Rest, fluids, pain medications and, occasionally, medication for the specific symptoms that are most bothersome will be prescribed. Use good handwashing to avoid passing the virus to others. Shared toys should be cleaned with disinfectant. Clean the toilets, sinks, and counter surfaces in bathrooms. Launder clothing in hot water. Contact the physician if you develop any new or unusual symptoms such as severe headache, stiff neck, high fever, chest pain, productive cough, or shortness of breath. You should be rechecked if you don't see marked improvement within seven to 10 days. Dehydration Dehydration can result from vomiting or diarrhea, fever, or decreased intake of fluids. If severe, hospitalization and intravenous fluids may be required. Most cases are treated at home with fluids by mouth. For the next 24 hours, drink lots of clear fluids. In mild cases, this can be soda pop or sports drinks. For more severe dehydration, the doctor may recommend special fluids such as Pedialyte or Lytren. Try to get three liters ( 3 quarts) of fluid per day. If vomiting occurs, continue to drink the fluids frequently (every 15 to 20 minutes), but in small amounts (one or two ounces). Depending on the type of dehydration, the doctor may prescribe antinausea medicine or potassium replacements. Call the doctor or return for re-examination if you become progressively weak, vomit repeatedly, or have other new symptoms. Hypokalemia You have an abnormally decreased level of serum potassium. Hypokalemia may cause weakness, fatigue, or heart rhythm abnormalities. Sometimes there are no symptoms at all. Usually, low serum potassium is due to taking diuretics ( water pills). It can also be due to excessive vomiting or diarrhea. If no obvious cause is evident, further evaluation will be necessary. Treatment is usually oral potassium supplements. Take these exactly as prescribed. You may also want to select foods which are naturally high in potassium -- fruits (such as bananas, cantaloupe, grapes, oranges, prunes, tomatoes), fresh vegetables (potatoes, spinach, beans, peas), orange or tomato juice, tomato pasta sauce, milk, fish (halibut, tuna, salmon, yovani) A follow-up blood test is usually performed to assure that the potassium is returning to normal. Call the physician if you suffer severe weakness, muscle twitching or cramping, palpitations (pounding or irregular heartbeat), or any other new or alarming symptoms. INTRAVENOUS (I V) FLUIDS: As part of your care today, you received intravenous (IV) fluids. IV fluids are administered to patients who are dehydrated or to those who have certain chemical (electrolyte) abnormalities that need correcting. ANTINAUSEA MEDICATION: You have been given a medication to suppress nausea and vomiting. This type of medication can be given as a shot, pill, or suppository. It will usually last for many hours. Pills and shots usually last six to eight hours. For the typical illness, only one or two doses of the medication may be necessary. Mild lightheadedness may occur. This type of medicine can cause drowsiness. Do not drive or operate dangerous machinery while under its influence. Do not mix with alcohol. See your doctor at once if you have muscle spasms or tightness, or uncontrollable motions (particularly of the neck, mouth, or jaw). Persistent vomiting or severe lightheadedness should also be evaluated by the physician. FOLLOW-UP CARE: If you have been referred to a physician for follow-up care, call the physician s office for an appointment as you were instructed or within the next two days. If you experience worsening or a significant change in your symptoms, notify the physician immediately or return to the Emergency Department at any time for re-evaluation. Prescriptions: Ondansetron [Zofran Odt 4 mg Tablet] 1 - 2 tab PO Q4H PRN #12 tab.rapdis PRN Reason: For Nausea/Vomiting Forms: Return to Work
[2018-03-15 17:25] VITALS: BP 126/71
== END 2018-03-15 17:22 | disposition home or self-care (01) ==
LOC: ER 13:33
DX: E87.6 Hypokalemia (principal); E86.0 Dehydration; R10.9 Unspecified abdominal pain; R19.7 Diarrhea, unspecified; R11.10 Vomiting, unspecified; E03.9 Hypothyroidism, unspecified; Z90.49 Acquired absence of other specified parts of digestive tract
CPT/HCPCS: 99284; 96360; 36415; 83690; 85025; 81025; 80053; 81001; S0119

== ENCOUNTER 2018-11-20 23:45 | Emergency (ER) | payer SELFPAY ==
[2018-11-21] MEDS ORDERED: NORMAL SALINE 1000 ML 1,000 ML IV ONE (00:32)
[2018-11-21] MEDS ORDERED: HYDROMORPHONE HCL INJ/PF 2 MG/ML AMPULE IV ONE (00:32)
[2018-11-21] MEDS ORDERED: METOCLOPRAMIDE HCL INJ/PF 10 MG/2 ML SDV IV ONE (00:32)
[2018-11-21 01:39] LABS: ABSOLUTE EOSINOPHILS # (AUTO) 0.3 10^3/uL (0.0-0.6); ABSOLUTE LYMPHOCYTES (AUTO) 1.7 10^3/uL (0.5-4.7); ABSOLUTE MONOCYTES (AUTO) 0.3 10^3/uL (0.1-1.4); ABSOLUTE NEUT (AUTO) 3.6 10^3/uL (1.7-8.2); BASOPHILS % (AUTO) 0.3 % (0-2); EOSINOPHILS % (AUTO) 5.6 % (0-6); HEMOGLOBIN 12.6 g/dL (12.0-15.5); LYMPHOCYTES % (AUTO) 28.8 % (13-45); MEAN CORPUSCULAR HEMOGLOBIN 31.2 pg (27.0-33.4); MEAN CORPUSCULAR VOLUME 92 fl (80-97); MONOCYTES % (AUTO) 5.2 % (3-13); PLATELET COUNT 226 10^3/uL (150-450); RED BLOOD COUNT 4.02 10^6/uL (3.72-5.28); RED CELL DISTRIBUTION WIDTH 12.5 % (11.5-14.0); SEGMENTED NEUTROPHILS % (AUTO) 60.1 % (42-78); TOTAL CELLS COUNTED % (AUTO) 100 %
[2018-11-21 01:42] LABS: APPEARANCE,URINE SLIGHTLY-CLOUDY; BILIRUBIN,URINE NEGATIVE (NEGATIVE); COLOR,URINE YELLOW; GLUCOSE, URINE NEGATIVE (NEGATIVE); KETONES,URINE NEGATIVE (NEGATIVE); LEUKOCYTE ESTERASE,URINE TRACE (NEGATIVE); NITRITE,URINE NEGATIVE (NEGATIVE); PROTEIN,URINE NEGATIVE (NEGATIVE); URINE SPECIFIC GRAVITY 1.019; UROBILINOGEN,URINE NEGATIVE mg/dL (<2.0)
[2018-11-21 01:57] LABS: ALANINE AMINOTRANSFERASE 20 U/L (9-52); ALBUMIN 4.3 g/dL (3.5-5.0); ALKALINE PHOSPHATASE 51 U/L (38-126); ANION GAP 10 (5-19); ASPARTATE AMINO TRANSFERASE 18 U/L (14-36); BILIRUBIN,DIRECT 0.2 mg/dL (0.0-0.4); BILIRUBIN,TOTAL 0.5 mg/dL (0.2-1.3); BLOOD UREA NITROGEN 19 mg/dL (7-20); CALCIUM 9.4 mg/dL (8.4-10.2); CARBON DIOXIDE 25 mmol/L (22-30); CHLORIDE 106 mmol/L (98-107); GLUCOSE 97 mg/dL (75-110); POTASSIUM 4.3 mmol/L (3.6-5.0); SODIUM 141.3 mmol/L (137-145); TOTAL PROTEIN 7.2 g/dL (6.3-8.2)
[2018-11-21] MEDS ORDERED: KETOROLAC TROMETHAMINE INJ/PF 30 MG/1 ML SDV IV ONE (02:00)
--- NOTE | 2018-11-21 02:07 | ER Document Report ---
ED General - General Mode of Arrival: Ambulatory Information source: Patient TRAVEL OUTSIDE OF THE [place] IN LAST 30 DAYS: No - HPI Patient complains to provider of: Right-sided abdominal pain with nausea vomiting and diarrhea Onset: Yesterday Onset/Duration: Persistent Quality of pain: Sharp Severity: Severe Pain Level: 4 Associated symptoms: Diarrhea, Nausea, Vomiting. denies: Chills, Fever Exacerbated by: Denies Relieved by: Denies Similar symptoms previously: No Recently seen / treated by doctor: No <NADINE FAJARDO - Last Filed: 11/21/18 02:02> <GILBERTO ARNOLD - Last Filed: 11/21/18 20:10> - General Chief Complaint: Abdominal Pain Stated Complaint: RIGHT SIDE PAIN Time Seen by Provider: 11/21/18 00:21 - HPI Notes: 28-year-old female coming in today with right-sided abdominal pain. She does not have a gallbladder. She had nausea vomiting and diarrhea starting yesterday and the pain is persisted. No fevers or shaking chills. (NADINE FAJARDO) - Related Data Allergies/Adverse Reactions: cefixime [From Suprax] Allergy (Mild, Verified 03/15/18 14:22) Hives Past Medical History - General Information source: Patient - Social History Smoking Status: Smoker,Current Status Unk Family History: Reviewed & Not Pertinent - Past Medical History Cardiac Medical History: Denies: Hx Coronary Artery Disease, Hx Heart Attack, Hx Hypertension Pulmonary Medical History: Denies: Hx Asthma, Hx Bronchitis, Hx COPD, Hx Pneumonia, Hx Tuberculosis Neurological Medical History: Denies: Hx Cerebrovascular Accident, Hx Seizures Endocrine Medical History: Reports: Hx Hypothyroidism Renal/ Medical History: Denies: Hx Peritoneal Dialysis Musculoskeletal Medical History: Denies Hx Arthritis Past Surgical History: Reports: Hx Cholecystectomy, Hx Orthopedic Surgery - acl - Immunizations Hx Diphtheria, Pertussis, Tetanus Vaccination: No <NADINE FAJARDO - Last Filed: 11/21/18 02:02> Review of Systems <NADINE FAJARDO - Last Filed: 11/21/18 02:02> - Review of Systems Notes: Constitutional: No fevers. No chills. EENT: No eye redness. No eye pain. No ear pain. No sore throat. Cardiovascular: No chest pain. No palpitations. Respiratory: No cough. No shortness of breath. No respiratory distress. Gastrointestinal: + abdominal pain and n/v/d Genitourinary: Atraumatic. No lesions. No pain. No discharge. Musculoskeletal: Atraumatic. No swelling. No deformities. Skin: No rash or lesions. Lymphatic: No swollen lymph nodes. Neurologic: No headache. No syncope. Psychiatric: No suicidal or homicidal ideation. (NADINE FAJARDO) Physical Exam <NADINE FAJARDO - Last Filed: 11/21/18 02:02> - Vital signs Vitals: Temp Pulse Resp BP Pulse Ox 98.2 F 70 22 H 124/57 L 99 11/20/18 23:56 11/20/18 23:56 11/20/18 23:56 11/20/18 23:56 11/20/18 23:56 - Notes Notes: General: Well-developed, well-nourished. In no acute distress. Non-toxic appearing. Cardiac: Well-perfused. Regular rate and rhythm. No murmurs, rubs, or gallops. Pulmonary: No respiratory distress. No cyanosis. Bilateral lung fiels are clear to auscultation. Abdominal: Tenderness to palpation right mid abdomen. Bowel sounds present all 4 quadrants. No guarding rebound HEENT: Head is atraumatic. Conjunctivae not reddened. No tearing. PERRL. EOMI. O rbits atraumatic. No periorbital swelling or erythema. Oropharynx is without erythema, swelling, or exudates. Neck: Supple. No adenopathy. No meningismus. Dermatologic: Warm with good turgor. No rash. Atraumatic. Chest: Atraumatic. No chest wall tenderness to palpation. Musculoskeletal: Moves all extremities well. No range of motion deficits. no muscular or joint tenderness. No paraspinal muscle tenderness. no midline spinal tenderness or step-off. Genitourinary: Examination deferred Neurologic: No gross neurologic deficits. Psychiatric: Normal mood. (NADINE FAJARDO) Course - Laboratory Result Diagrams: 11/21/18 01:22 11/21/18 01:22 <NADINE FAJARDO - Last Filed: 11/21/18 02:02> - Laboratory Result Diagrams: 11/21/18 01:22 11/21/18 01:22 <GILBERTO ARNOLD - Last Filed: 11/21/18 20:10> - Re-evaluation Re-evalutation: 11/21/18 02:06 Shift-end note: So far no white count and urinalysis is pretty unremarkable. CT scan is pending. My colleague Gilberto Arnold came over to introduce himself to the patient. He is aware of the history, the physical and the lab results thus far. He will continue to manage the patient including further treatment as necessary and final disposition after her work-up is complete. (NADINE FAJARDO) 11/21/18 03:25 Called and spoke with surgeon operation supervisor Dr. Gustafson, he states he will come evaluate the patient. 11/21/18 Dr. Gustafson has evaluated the patient. He states that he did offer to take the patient to the operating room because she still has pain even though we do not have definite evidence of acute appendicitis. Patient declined this, prefers the test of time. He recommends that she return to the emergency department within the next 12 hours for recheck and possibly even another CAT scan. Patient discharged with these instructions. (GILBERTO ARNOLD) - Vital Signs Vital signs: Temp Pulse Resp BP Pulse Ox 98.0 F 72 16 117/59 L 98 11/21/18 05:00 11/21/18 05:00 11/21/18 05:00 11/21/18 05:00 11/21/18 05:00 - Laboratory Laboratory results interpreted by me: 11/21/18 00:48 Urine Blood SMALL H Ur Leukocyte Esterase TRACE H Discharge <NADINE FAJARDO - Last Filed: 11/21/18 02:02> <GILBERTO ARNOLD - Last Filed: 11/21/18 20:10> - Discharge Clinical Impression: Right sided abdominal pain Condition: Stable Disposition: HOME, SELF-CARE Additional Instructions: At this time, the abdominal pain is not definitely appendicitis. Our next "test" will be passage of time. If you have early appendicitis, signs will appear to help us make the diagnosis. Most of the time, the pain goes away. In these cases, the pain is usually due to a virus in the lymph glands near the appendix, or due to an ovarian cyst or ovulation. Unless the pain is gone, you should come back for a recheck. This is usually done in around 12 hours. Come back immediately if: (1) the pain becomes much more severe and sharply increases with movement or coughing, (2) vomiting becomes frequent, (3) there is blood in the vomit, urine, or bowel movements, (4) there are shaking chills or fever, or (5) the abdomen becomes more distended or swollen. Prescriptions: Ondansetron [Zofran Odt 4 mg Tablet] 1 - 2 tab PO Q4H PRN #15 tab.rapdis PRN Reason: For Nausea/Vomiting Forms: Return to Work
--- NOTE | 2018-11-21 02:28 | RADIOLOGY REPORT (SQ) ---
EXAM DESCRIPTION: CT ABDOMEN PELVIS WITH IV CONTRAST COMPLETED DATE/TME: 11/21/2018 00:28 CLINICAL HISTORY: 28 years, Female, right sided belly pain COMPARISON: None. TECHNIQUE: Axial CT images of the abdomen and pelvis were obtained. Sagittal and coronal reformats were performed. DLP 483 Images stored on PACS. All CT scanners at this facility use dose modulation, iterative reconstruction, and/or weight based dosing when appropriate to reduce radiation dose to as low as reasonably achievable (ALARA). [facility]: Dose Right [facility]: CareDose [facility]: Dose Right [facility]: Teradose 4D [facility]: StackSearch LIMITATIONS: None. FINDINGS: No IV contrast is seen within the exam. The lung bases are clear. Cholecystectomy. The liver, pancreas, spleen, and adrenal glands appear unremarkable. Both kidneys appear unremarkable. No evidence of urolithiasis or hydronephrosis. There is no intraperitoneal free air or fluid. There is no lymphadenopathy. The stomach, small bowel, and colon appear unremarkable. The tip of the appendix measures up to 7 mm in diameter with no definite surrounding inflammatory changes. The uterus, adnexa, and urinary bladder are unremarkable. There are no lytic or blastic bone lesions. IMPRESSION: The tip of the appendix measures up to 7 mm in diameter, which is at the upper limit of normal in size with no definite surrounding inflammatory changes. This may be due to an early acute appendicitis. TECHNICAL DOCUMENTATION: Quality ID # 436: Final reports with documentation of one or more dose reduction techniques (e.g., Automated exposure control, adjustment of the mA and/or kV according to patient size, use of iterative reconstruction technique) copyright 2011 [employer]- All Rights Reserved
--- NOTE | 2018-11-21 04:59 | PDOC CONSULTATION ---
Consultation Consult Date: 11/21/18 Provider Consulted: AGAPITO NARAYANAN Consult reason:: r/o appendicitis History of Present Illness History of Present Illness: MARCE CHAMPAGNE is a 28 year old female with right-sided abdominal pain. She does not have a gallbladder, s/p lap kelley approx 2yrs ago She had nausea vomiting and diarrhea starting yesterday and the pain is persisted, it is minimal and feels link a pulling sensation on rt side of abdomen. No fevers or shaking chills she has a ct done [place] showing an appendix wwith min dilation without stran ding. Past Medical History Cardiac Medical History: Denies: Coronary Artery Disease, Myocardial Infarction, Hypertension Pulmonary Medical History: Denies: Asthma, Bronchitis, Chronic Obstructive Pulmonary Disease (COPD), Pneumonia, Tuberculosis Neurological Medical History: Denies: Seizures Endocrine Medical History: Reports: Hypothyroidism Musculoskeltal Medical History: Denies: Arthritis Hematology: Denies: Anemia Past Surgical History Past Surgical History: Reports: Cholecystectomy, Orthopedic Surgery - acl Social History Smoking Status: Smoker,Current Status Unk Hx Recreational Drug Use: No Hx Prescription Drug Abuse: No Family History Family History: Reviewed & Not Pertinent Parental Family History Reviewed: No Children Family History Reviewed: NA Sibling(s) Family History Reviewed.: NA Medication/Allergy Home Medications: Ondansetron [Zofran Odt 4 mg Tablet] 1 - 2 tab PO Q4H PRN #12 tab.rapdis 03/15/18 Ondansetron [Zofran Odt 4 mg Tablet] 1 - 2 tab PO Q4H PRN #15 tab.rapdis 11/21/18 Allergies/Adverse Reactions: cefixime [From Suprax] Allergy (Mild, Verified 03/15/18 14:22) Hives Review of Systems Constitutional: ABSENT: chills, fever(s), headache(s), weight gain, weight loss Eyes: ABSENT: visual disturbances Ears: ABSENT: hearing changes Nose, Mouth, and Throat: PRESENT: as per HPI, headache(s), mouth pain, sore throat, vertigo, other Cardiovascular: ABSENT: chest pain, dyspnea on exertion, edema, orthropnea, palpitations Gastrointestinal: PRESENT: abdominal pain, vomiting Genitourinary: ABSENT: dysuria, hematuria Musculoskeletal: ABSENT: joint swelling Integumentary: ABSENT: rash, wounds Neurological: ABSENT: abnormal gait, abnormal speech, confusion, dizziness, focal weakness, syncope Psychiatric: ABSENT: anxiety, depression, homidical ideation, suicidal ideation Endocrine: ABSENT: cold intolerance, heat intolerance, polydipsia, polyuria Hematologic/Lymphatic: ABSENT: easy bleeding, easy bruising Physical Exam Vital Signs: Temp Pulse Resp BP Pulse Ox 98.2 F 70 22 H 124/57 L 99 11/20/18 23:56 11/20/18 23:56 11/20/18 23:56 11/20/18 23:56 11/20/18 23:56 Intake & Output 11/19/18 11/20/18 11/21/18 06:59 06:59 06:59 Intake Total 1000 Balance 1000 Weight 80.7 kg General appearance: PRESENT: no acute distress Head exam: PRESENT: normocephalic Eye exam: PRESENT: EOMI Mouth exam: PRESENT: moist Neck exam: PRESENT: full ROM Respiratory exam: PRESENT: clear to auscultation fabricio Cardiovascular exam: PRESENT: RRR Pulses: PRESENT: normal radial pulses, normal femoral pulses Vascular exam: PRESENT: normal capillary refill GI/Abdominal exam: PRESENT: soft, other - min tenderness to deep palpation in rlq without rebound Extremities exam: PRESENT: full ROM Musculoskeletal exam: PRESENT: full ROM Neurological exam: PRESENT: alert, awake, oriented to person, oriented to place Psychiatric exam: PRESENT: appropriate affect Skin exam: PRESENT: dry Results Laboratory Results: 11/21/18 01:22 11/21/18 01:22 11/21/18 11/21/18 11/21/18 00:48 01:22 01:22 WBC 6.0 RBC 4.02 Hgb 12.6 Hct 37.0 MCV 92 MCH 31.2 MCHC 34.0 RDW 12.5 Plt Count 226 Seg Neutrophils % 60.1 Lymphocytes % 28.8 Monocytes % 5.2 Eosinophils % 5.6 Basophils % 0.3 Absolute Neutrophils 3.6 Absolute Lymphocytes 1.7 Absolute Monocytes 0.3 Absolute Eosinophils 0.3 Absolute Basophils 0.0 Sodium 141.3 Potassium 4.3 Chloride 106 Carbon Dioxide 25 Anion Gap 10 BUN 19 Creatinine 0.58 Est GFR ( Amer) > 60 Est GFR (Non-Af Amer) > 60 Glucose 97 Calcium 9.4 Total Bilirubin 0.5 AST 18 ALT 20 Alkaline Phosphatase 51 Total Protein 7.2 Albumin 4.3 Urine Color YELLOW Urine Appearance SLIGHTLY-CLOUDY Urine pH 5.0 Ur Specific [place] 1.019 Urine Protein NEGATIVE Urine Glucose (UA) NEGATIVE Urine Ketones NEGATIVE Urine Blood SMALL H Urine Nitrite NEGATIVE Ur Leukocyte Esterase TRACE H Urine WBC (Auto) 2 Urine RBC (Auto) 0 Impressions: Abdomen/Pelvis CT 11/21/18 00:28 IMPRESSION: The tip of the appendix measures up to 7 mm in diameter, which is at the upper limit of normal in size with no definite surrounding inflammatory changes. This may be due to an early acute appendicitis. TECHNICAL DOCUMENTATION: Quality ID # 436: Final reports with documentation of one or more dose reduction techniques (e.g., Automated exposure control, adjustment of the mA and/or kV according to patient size, use of iterative reconstruction technique) copyright 2011 [employer]- All Rights Reserved Assessment & Plan - Plan Summary Plan Summary: I reviewd ct results iwth pt and suggested that a sl dilated appendix and no inflammation could imply very early appenicitis vs normal she understands that this could develop into appendicitis over the next 12-24 hrs and although surgery was offered to her, she elects to come back for a recheck will arrange for a repeat exam in [place] in 24hrs. and she will return if pain worsens.
[2018-11-21 05:01] VITALS: BP 117/59
== END 2018-11-21 05:01 | disposition home or self-care (01) ==
LOC: ER 23:45
DX: R10.9 Unspecified abdominal pain (principal); R10.817 Generalized abdominal tenderness; R11.2 Nausea with vomiting, unspecified; R19.7 Diarrhea, unspecified; Z90.49 Acquired absence of other specified parts of digestive tract; Z88.1 Allergy status to other antibiotic agents
CPT/HCPCS: 99284; 36415; 85025; 81025; 80053; 81001; 74177; J1885; J2765; J1170; J7030

== ENCOUNTER 2018-11-23 09:31 | Emergency (ER) | payer SELFPAY ==
[2018-11-23] MEDS ORDERED: NORMAL SALINE 1000 ML 1,000 ML IV ONE (09:46)
[2018-11-23] MEDS ORDERED: ONDANSETRON HCL INJ/PF 4 MG/2 ML SDV IV ONE (09:46)
--- NOTE | 2018-11-23 09:48 | ER Document Report ---
ED Medical Screen (RME) - General Chief Complaint: Flank Pain Stated Complaint: FLANK PAIN Time Seen by Provider: 11/23/18 09:43 Mode of Arrival: Ambulatory Information source: Patient Notes: 28-year-old female presented to ED for nausea vomiting diarrhea and right lower quadrant abdominal pain. She states she was just seen here couple days ago and the CAT scan showed a enlarged appendix but not an appendicitis. She states she is continuing to have abdominal pain nausea vomiting and diarrhea. She would like to be rechecked. She states she was told when she came last time please return if she continued to have pain. Patient does have rebound tenderness to the right lower quadrant at this time. I have greeted and performed a rapid initial assessment of this patient. A comprehensive ED assessment and evaluation of the patient, analysis of test results and completion of medical decision making process will be conducted by an additional ED providers. Dictation of this chart was performed using voice recognition software; therefore, there may be some unintended grammatical errors. TRAVEL OUTSIDE OF THE [place] IN LAST 30 DAYS: No - Related Data Allergies/Adverse Reactions: cefixime [From Suprax] Allergy (Mild, Verified 11/23/18 09:32) Hives Past Medical History - Social History Chew tobacco use (# tins/day): No Frequency of alcohol use: None Drug Abuse: None - Past Medical History Cardiac Medical History: Denies: Hx Coronary Artery Disease, Hx Heart Attack, Hx Hypertension Pulmonary Medical History: Denies: Hx Asthma, Hx Bronchitis, Hx COPD, Hx Pneumonia, Hx Tuberculosis Neurological Medical History: Denies: Hx Cerebrovascular Accident, Hx Seizures Endocrine Medical History: Reports: Hx Hypothyroidism Renal/ Medical History: Denies: Hx Peritoneal Dialysis Musculoskeltal Medical History: Denies Hx Arthritis Past Surgical History: Reports: Hx Cholecystectomy, Hx Orthopedic Surgery - acl - Immunizations Hx Diphtheria, Pertussis, Tetanus Vaccination: No Physical Exam - Vital signs Vitals: Temp Pulse Resp BP Pulse Ox 97.9 F 77 16 138/69 H 100 11/23/18 09:36 11/23/18 09:36 11/23/18 09:36 11/23/18 09:36 11/23/18 09:36 Course - Vital Signs Vital signs: Temp Pulse Resp BP Pulse Ox 97.9 F 77 16 138/69 H 100 11/23/18 09:36 11/23/18 09:36 11/23/18 09:36 11/23/18 09:36 11/23/18 09:36
[2018-11-23 10:33] LABS: ABSOLUTE EOSINOPHILS # (AUTO) 0.1 10^3/uL (0.0-0.6); ABSOLUTE LYMPHOCYTES (AUTO) 1.4 10^3/uL (0.5-4.7); ABSOLUTE MONOCYTES (AUTO) 0.3 10^3/uL (0.1-1.4); ABSOLUTE NEUT (AUTO) 3.3 10^3/uL (1.7-8.2); BASOPHILS % (AUTO) 0.4 % (0-2); EOSINOPHILS % (AUTO) 2.3 % (0-6); HEMATOCRIT 37.3 % (36.0-47.0); HEMOGLOBIN 12.7 g/dL (12.0-15.5); LYMPHOCYTES % (AUTO) 27.8 % (13-45); MEAN CORPUSCULAR HEMOGLOBIN 31.2 pg (27.0-33.4); MEAN CORPUSCULAR VOLUME 92 fl (80-97); MONOCYTES % (AUTO) 4.9 % (3-13); PLATELET COUNT 231 10^3/uL (150-450); RED BLOOD COUNT 4.07 10^6/uL (3.72-5.28); RED CELL DISTRIBUTION WIDTH 12.1 % (11.5-14.0); SEGMENTED NEUTROPHILS % (AUTO) 64.6 % (42-78); TOTAL CELLS COUNTED % (AUTO) 100 %; WHITE BLOOD COUNT 5.2 10^3/uL (4.0-10.5)
[2018-11-23 10:40] LABS: APPEARANCE,URINE CLOUDY; BILIRUBIN,URINE NEGATIVE (NEGATIVE); COLOR,URINE YELLOW; GLUCOSE, URINE NEGATIVE (NEGATIVE); KETONES,URINE NEGATIVE (NEGATIVE); LEUKOCYTE ESTERASE,URINE LARGE (NEGATIVE); NITRITE,URINE NEGATIVE (NEGATIVE); PROTEIN,URINE NEGATIVE (NEGATIVE); URINE SPECIFIC GRAVITY 1.015; UROBILINOGEN,URINE NEGATIVE mg/dL (<2.0)
[2018-11-23 10:54] LABS: ALANINE AMINOTRANSFERASE 18 U/L (9-52); ALBUMIN 4.5 g/dL (3.5-5.0); ALKALINE PHOSPHATASE 55 U/L (38-126); ANION GAP 10 (5-19); ASPARTATE AMINO TRANSFERASE 19 U/L (14-36); BILIRUBIN,DIRECT 0.2 mg/dL (0.0-0.4); BILIRUBIN,TOTAL 1.1 mg/dL (0.2-1.3); BLOOD UREA NITROGEN 13 mg/dL (7-20); CALCIUM 9.2 mg/dL (8.4-10.2); CARBON DIOXIDE 24 mmol/L (22-30); CHLORIDE 106 mmol/L (98-107); GLUCOSE 91 mg/dL (75-110); POTASSIUM 4.3 mmol/L (3.6-5.0); SODIUM 139.8 mmol/L (137-145); TOTAL PROTEIN 7.6 g/dL (6.3-8.2)
[2018-11-23] MEDS ORDERED: MORPHINE SULFATE 10 MG/ML INJ IV ONE (10:59)
--- NOTE | 2018-11-23 11:03 | ER Document Report ---
ED General - General Chief Complaint: Flank Pain Stated Complaint: FLANK PAIN Time Seen by Provider: 11/23/18 09:43 Mode of Arrival: Ambulatory TRAVEL OUTSIDE OF THE [place] IN LAST 30 DAYS: No - HPI Notes: Patient is a 28-year-old female that presents to the emergency department for chief complaint of right lower quadrant abdominal pain. Patient states that she has had increased pain, fevers and vomiting since her previous visit in the emergency room. She was seen here for the same pain on 11/20/2018 and told she might have early appendicitis. Patient elected for close outpatient follow-up. She states since being seen her symptoms have worsened. She has not taken her temperature at home but reports shaking chills. She describes a sharp pain in her right lower quadrant that is nonradiating. The pain is worse with any movement. She denies relieving factors to her pain. She states it is now constant where initially was more intermittent. Past Medical History: Negative Past Surgical History: Cholecystectomy Social History: Denies drugs alcohol and tobacco Family History: Reviewed and noncontributory for presenting illness Allergies: Reviewed, see documented allergy list. REVIEW OF SYSTEMS: CONSTITUTIONAL : fever chills No diaphoresis No recent illness EENT: No vision changes No congestion No sore throat CARDIOVASCULAR: No chest pain No palpitations RESPIRATORY: No shortness of breath No cough No difficulty breathing GASTROINTESTINAL: abdominal pain nausea vomiting No diarrhea GENITOURINARY: No dysuria No hematuria No difficulty urinating MUSCULOSKELETAL: No back pain No leg pain No arm pain SKIN: No rashes No lesions LYMPHATIC: No swollen, enlarged glands. NEUROLOGICAL: No lightheadedness No headache No weakness No paresthesias PSYCHIATRIC: No anxiety No depression PHYSICAL EXAMINATION: Vital signs reviewed, nursing noted reviewed. GENERAL: Ill-appearing, well-nourished and in mild acute distress. HEAD: Atraumatic, normocephalic. EYES: Eyes appear normal, extraocular movements intact, sclera anicteric, conjunctiva are normal. ENT: nares patent, oropharynx clear without exudates. Moist mucous membranes. NECK: Normal range of motion, supple without lymphadenopathy LUNGS: Breath sounds clear to auscultation bilaterally and equal. No wheezes rales or rhonchi. HEART: Regular rate and rhythm without murmurs ABDOMEN: Soft, focal tenderness in her right lower quadrant, positive rebound tenderness, no abdominal rigidity or guarding. Normoactive bowel sounds. No masses appreciated. EXTREMITIES: Nontender, good range of motion, no pitting or edema. NEUROLOGICAL: No focal neurological deficits. Moves all extremities spontaneously Motor and sensory grossly intact on exam. PSYCH: Normal mood, normal affect. SKIN: Warm, Dry, normal turgor, no rashes or lesions noted on exposed skin - Related Data Allergies/Adverse Reactions: cefixime [From Suprax] Allergy (Mild, Verified 11/23/18 09:32) Hives Past Medical History - General Information source: Patient - Social History Smoking Status: Unknown if Ever Smoked Chew tobacco use (# tins/day): No Frequency of alcohol use: None Drug Abuse: None Family History: Reviewed & Not Pertinent Patient has suicidal ideation: No Patient has homicidal ideation: No - Past Medical History Cardiac Medical History: Denies: Hx Coronary Artery Disease, Hx Heart Attack, Hx Hypertension Pulmonary Medical History: Denies: Hx Asthma, Hx Bronchitis, Hx COPD, Hx Pneumonia, Hx Tuberculosis Neurological Medical History: Denies: Hx Cerebrovascular Accident, Hx Seizures Endocrine Medical History: Reports: Hx Hypothyroidism Renal/ Medical History: Denies: Hx Peritoneal Dialysis Musculoskeletal Medical History: Denies Hx Arthritis Past Surgical History: Reports: Hx Cholecystectomy, Hx Orthopedic Surgery - acl - Immunizations Hx Diphtheria, Pertussis, Tetanus Vaccination: No Physical Exam - Vital signs Vitals: Temp Pulse Resp BP Pulse Ox 97.9 F 77 16 138/69 H 100 11/23/18 09:36 11/23/18 09:36 11/23/18 09:36 11/23/18 09:36 11/23/18 09:36 Course - Re-evaluation Re-evalutation: 11/23/18 11:02 Vitals reviewed. Nursing notes reviewed. Patient appears ill and uncomfortable. She was given IV fluids, Zofran and morphine for symptom medic management. She does have focal tenderness in her right lower quadrant. I reviewed her previous visit and CT scan which showed distal appendix dilatation. Her blood work today shows no new leukocytosis however given her symptoms and previous CT I will repeat CT scan to evaluate for appendicitis with possible perforation. 11/23/18 12:09 Patient reevaluated and states she is feeling much better. She does have some tenderness in her right lower quadrant. CT scan shows no acute appendicitis. Patient does have a acute urinary tract infection. There is no sign of pyelonephritis on the CT and she has normal renal function. Patient's symptoms may be related to reflux in the ureter and possibly early Mark. Patient will be started on Bactrim for her urinary tract infection. She will be referred to primary care for follow-up. She will return to the emergency room for new or worsening symptoms. She is stable and improved at discharge. Laboratory 11/23/18 11/23/18 11/23/18 10:10 10:10 10:10 WBC 5.2 RBC 4.07 Hgb 12.7 Hct 37.3 MCV 92 MCH 31.2 MCHC 34.0 RDW 12.1 Plt Count 231 Seg Neutrophils % 64.6 Lymphocytes % 27.8 Monocytes % 4.9 Eosinophils % 2.3 Basophils % 0.4 Absolute Neutrophils 3.3 Absolute Lymphocytes 1.4 Absolute Monocytes 0.3 Absolute Eosinophils 0.1 Absolute Basophils 0.0 Sodium 139.8 Potassium 4.3 Chloride 106 Carbon Dioxide 24 Anion Gap 10 BUN 13 Creatinine 0.63 Est GFR ( Amer) > 60 Est GFR (Non-Af Amer) > 60 Glucose 91 Calcium 9.2 Total Bilirubin 1.1 Direct Bilirubin 0.2 Neonat Total Bilirubin Not Reportable Neonat Direct Bilirubin Not Reportable Neonat Indirect Bili Not Reportable AST 19 ALT 18 Alkaline Phosphatase 55 Total Protein 7.6 Albumin 4.5 Beta HCG, Quant < 2.39 Total Beta HCG NEGATIVE Urine Color YELLOW Urine Appearance CLOUDY Urine pH 5.0 Ur Specific [place] 1.015 Urine Protein NEGATIVE Urine Glucose (UA) NEGATIVE Urine Ketones NEGATIVE Urine Blood SMALL H Urine Nitrite NEGATIVE Urine Bilirubin NEGATIVE Urine Urobilinogen NEGATIVE Ur Leukocyte Esterase LARGE H Urine WBC (Auto) 12 Urine RBC (Auto) 12 Urine Bacteria (Auto) TRACE Squamous Epi Cells Auto 21 Urine Mucus (Auto) RARE Urine Ascorbic Acid NEGATIVE Abdomen/Pelvis CT 11/23/18 10:11 IMPRESSION: NO SIGNIFICANT OR ACUTE FINDING IN THE ABDOMEN OR PELVIS ON CT SCAN WITH IV CONTRAST. - Vital Signs Vital signs: Temp Pulse Resp BP Pulse Ox 97.9 F 77 16 138/69 H 100 11/23/18 09:36 11/23/18 09:36 11/23/18 09:36 11/23/18 09:36 11/23/18 09:36 - Laboratory Result Diagrams: 11/23/18 10:10 06/12/19 10:10 Laboratory results interpreted by me: 11/23/18 10:10 Urine Blood SMALL H Ur Leukocyte Esterase LARGE H Discharge - Discharge Clinical Impression: Acute UTI, RLQ abdominal pain, Chills Condition: Stable Disposition: HOME, SELF-CARE Instructions: Urinary Tract Infection ([facility]) Additional Instructions: Please return to the emergency department if you have any worsening, or concern of your symptoms. Please return to the emergency department if you develop chest pain, difficulty breathing, severe abdominal pain, or ongoing vomiting. Please follow-up with your primary care physician in 2-3 days and any other recommended physicians. If prescribed, take all medications as directed. If you have any questions or concerns do not hesitate to return the emergency department for evaluation. Complete your antibiotic course even if your symptoms are improving Take Tylenol and ibuprofen at home for fevers and pain Prescriptions: Sulfamethoxazole/Trimethoprim [Bactrim Ds Tablet] 1 each PO BID #20 tablet Referrals: [facility] [Provider Group] - Follow up in 3-5 days
--- NOTE | 2018-11-23 11:19 | RADIOLOGY REPORT (SQ) ---
EXAM DESCRIPTION: CT ABD/PELVIS WITH IV ONLY COMPLETED DATE/TIME: 11/23/2018 10:51 am REASON FOR STUDY: RLQ pain COMPARISON: 2 days prior. TECHNIQUE: CT scan of the abdomen and pelvis performed using helical scanning technique with dynamic intravenous contrast injection. No oral contrast. Images reviewed with lung, soft tissue, and bone windows. Reconstructed coronal and sagittal MPR images reviewed. Delayed images for evaluation of the urinary system also acquired. All images stored on PACS. All CT scanners at this facility use dose modulation, iterative reconstruction, and/or weight based d osing when appropriate to reduce radiation dose to as low as reasonably achievable (ALARA). [facility]: Dose Right [facility]: CareDose [facility]: Dose Right [facility]: Teradose 4D [facility]: RealOps CONTRAST TYPE AND DOSE: contrast/concentration: Isovue 350.00 mg/ml; Total Contrast Delivered: 90.0 ml; Total Saline Delivered: 70.0 ml RENAL FUNCTION: GFR > 60. RADIATION DOSE: CT Rad equipment meets quality standard of care and radiation dose reduction techniq ues were employed. CTDIvol: 10.3 - 14.6 mGy. DLP: 1337 mGy-cm.. LIMITATIONS: None. FINDINGS: LOWER CHEST: No significant findings. No nodules or infiltrates. LIVER: Normal size. No masses. No dilated ducts. SPLEEN: Normal size. No focal lesions. PANCREAS: No masses. No significant calcifications. No adjacent inflammation or peripancreatic fluid collections. Pancreatic duct not dilated. GALLBLADDER: Surgically absent. ADRENAL GLANDS: No significant masses or asymmetry. RIGHT KIDNEY AND URETER: No solid masses. No significant calcifications. No hydronephrosis or hyd roureter. LEFT KIDNEY AND URETER: No solid masses. No significant calcifications. No hydronephrosis or hydr oureter. AORTA AND VESSELS: No aneurysm. No dissection. Renal arteries, SMA, celiac without stenosis. RETROPERITONEUM: No retroperitoneal adenopathy, hemorrhage or masses. BOWEL AND PERITONEAL CAVITY: No masses or inflammatory changes. No free fluid or peritoneal masses. APPENDIX: Normal. PELVIS: No mass. No free fluid. Normal bladder. ABDOMINAL WALL: No masses. No hernias. BONES: No significant or acute findings. OTHER: No other significant finding. IMPRESSION: NO SIGNIFICANT OR ACUTE FINDING IN THE ABDOMEN OR PELVIS ON CT SCAN WITH IV CONTRAST. TECHNICAL DOCUMENTATION: JOB ID: [id number] Quality ID # [id number]: Final reports with documentation of one or more dose reduction techniques (e.g., Au tomated exposure control, adjustment of the mA and/or kV according to patient size, use of iterative reconstruction technique) 2010 [employer]- All Rights Reserved Reading location - IP/workstation name: [email or web address]
[2018-11-23] MEDS ORDERED: SULFAMETHOXAZOLE/TRIMETHOPRIM 800-160 MG TABLET PO ONE (12:00)
[2018-11-23 12:24] VITALS: BP 99/55
== END 2018-11-23 12:23 | disposition home or self-care (01) ==
LOC: ER 09:31
DX: N39.0 Urinary tract infection, site not specified (principal); R10.31 Right lower quadrant pain; Z90.49 Acquired absence of other specified parts of digestive tract; Z88.1 Allergy status to other antibiotic agents; E03.9 Hypothyroidism, unspecified
CPT/HCPCS: 99284; 96361; 96374; 96375; 36415; 84702; 85025; 80053; 81001; 74177; J2270; J2405; J7030

== ENCOUNTER 2019-05-11 14:11 | Emergency (ER) | payer OTHER ==
[2019-05-11] MEDS ORDERED: OXYCODONE-ACETAMINOPHEN 5-325 MG TABLET PO ONE (14:26)
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
[2019-05-11] MEDS ORDERED: HYDROCODONE/ACETAMINOPHEN 5-325 MG (6 TAB/ER DISP) PO PRN (17:06)
[2019-05-11 17:27] VITALS: BP 128/61
== END 2019-05-11 17:32 | disposition home or self-care (01) ==
LOC: ER 14:11
DX: S20.212A Contusion of left front wall of thorax, initial encounter (principal); M79.671 Pain in right foot; M79.604 Pain in right leg; M79.605 Pain in left leg; V87.7XXA Person injured in collision between other specified motor vehicles (traffic), initial encounter; F17.200 Nicotine dependence, unspecified, uncomplicated
CPT/HCPCS: 71046; 99283

== ENCOUNTER 2019-05-15 11:32 | Emergency (ER) | payer OTHER ==
[2019-05-15 11:43] VITALS: BP 112/65
[2019-05-15] MEDS ORDERED: HYDROCODONE/ACETAMINOPHEN 5-325 MG TABLET PO ONE (12:10)
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
== END 2019-05-15 15:29 | disposition home or self-care (01) ==
LOC: ER 11:32
PROC: 2W3QX1Z Immobilization of Right Lower Leg using Splint (ICD-10-PCS; principal; 2019-05-15)
DX: S92.901A Unspecified fracture of right foot, initial encounter for closed fracture (principal); M79.671 Pain in right foot; M79.89 Other specified soft tissue disorders; V87.7XXA Person injured in collision between other specified motor vehicles (traffic), initial encounter
CPT/HCPCS: 99283

== ENCOUNTER 2019-05-24 12:26 | Emergency (ER) | payer OTHER ==
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
[2019-05-24 15:36] VITALS: BP 115/57
== END 2019-05-24 15:53 | disposition home or self-care (01) ==
LOC: ER 12:26
DX: M79.671 Pain in right foot (principal); M79.661 Pain in right lower leg; V89.2XXD Person injured in unspecified motor-vehicle accident, traffic, subsequent encounter
CPT/HCPCS: 99283

== ENCOUNTER 2019-08-25 10:23 | Emergency (ER) | payer OTHER ==
[2019-08-25] MEDS ORDERED: NORMAL SALINE 1000 ML 1,000 ML IV PRN (11:28)
[2019-08-25] MEDS ORDERED: ONDANSETRON HCL INJ/PF 4 MG/2 ML SDV IV ONE (11:28)
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
[2019-08-25 11:58] LABS: ABSOLUTE EOSINOPHILS # (AUTO) 0.4 10^3/uL (0.0-0.6); ABSOLUTE LYMPHOCYTES (AUTO) 1.7 10^3/uL (0.5-4.7); ABSOLUTE MONOCYTES (AUTO) 0.3 10^3/uL (0.1-1.4); ABSOLUTE NEUT (AUTO) 2.4 10^3/uL (1.7-8.2); BASOPHILS % (AUTO) 0.6 % (0-2); EOSINOPHILS % (AUTO) 9.1 % (0-6); HEMATOCRIT 36.4 % (36.0-47.0); HEMOGLOBIN 12.7 g/dL (12.0-15.5); LYMPHOCYTES % (AUTO) 34.4 % (13-45); MEAN CORPUSCULAR HEMOGLOBIN 31.7 pg (27.0-33.4); MEAN CORPUSCULAR HGB CONC 34.9 g/dL (32.0-36.0); MEAN CORPUSCULAR VOLUME 91 fl (80-97); MONOCYTES % (AUTO) 5.8 % (3-13); PLATELET COUNT 293 10^3/uL (150-450); RED CELL DISTRIBUTION WIDTH 12.4 % (11.5-14.0); SEGMENTED NEUTROPHILS % (AUTO) 50.1 % (42-78); TOTAL CELLS COUNTED % (AUTO) 100 %; WHITE BLOOD COUNT 4.9 10^3/uL (4.0-10.5)
[2019-08-25 12:06] LABS: APPEARANCE,URINE SLIGHTLY-CLOUDY; BILIRUBIN,URINE NEGATIVE (NEGATIVE); COLOR,URINE YELLOW; GLUCOSE, URINE NEGATIVE (NEGATIVE); KETONES,URINE NEGATIVE (NEGATIVE); LEUKOCYTE ESTERASE,URINE NEGATIVE (NEGATIVE); NITRITE,URINE NEGATIVE (NEGATIVE); PROTEIN,URINE 30 mg/dL (NEGATIVE); URINE SPECIFIC GRAVITY 1.024; UROBILINOGEN,URINE NEGATIVE mg/dL (<2.0)
[2019-08-25] MEDS ORDERED: FENTANYL CITRATE INJ/PF 100 MCG/2 ML AMPUL IV ONE (12:08)
[2019-08-25 12:16] LABS: ALBUMIN 4.4 g/dL (3.5-5.0); ALKALINE PHOSPHATASE 55 U/L (38-126); ANION GAP 6 (5-19); ASPARTATE AMINO TRANSFERASE 22 U/L (14-36); BILIRUBIN,TOTAL 0.8 mg/dL (0.2-1.3); BLOOD UREA NITROGEN 13 mg/dL (7-20); CARBON DIOXIDE 29 mmol/L (22-30); CHLORIDE 105 mmol/L (98-107); GLUCOSE 86 mg/dL (75-110); POTASSIUM 4.3 mmol/L (3.6-5.0); TOTAL PROTEIN 7.4 g/dL (6.3-8.2)
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
--- NOTE | 2019-08-25 14:24 | RADIOLOGY REPORT (SQ) ---
EXAM DESCRIPTION: CT ABD/PELVIS WITH IV ONLY COMPLETED DATE/TIME: 08/25/2019 2:09 pm REASON FOR STUDY: eval for appy COMPARISON: None. TECHNIQUE: CT scan of the abdomen and pelvis performed using helical scanning technique with dynamic intravenous contrast injection. No oral contrast. Images reviewed with lung, soft tissue, and bone windows. Reconstructed coronal and sagittal MPR images reviewed. Delayed images for evaluation of the urinary system also acquired. All images stored on PACS. All CT scanners at this facility use dose modulation, iterative reconstruction, and/or weight based d osing when appropriate to reduce radiation dose to as low as reasonably achievable (ALARA). [facility]: Dose Right [facility]: CareDose [facility]: Dose Right [facility]: Teradose 4D [facility]: Infer CONTRAST TYPE AND DOSE: 80 mL Omnipaque 350- low osmolar. RENAL FUNCTION: GFR > 60. RADIATION DOSE: CT Rad equipment meets quality standard of care and radiation dose reduction techniq ues were employed. CTDIvol: NaN mGy. DLP: 0 mGy-cm.. LIMITATIONS: None. FINDINGS: LOWER CHEST: No significant findings. No nodules or infiltrates. LIVER: Normal size. No masses. No dilated ducts. SPLEEN: Normal size. No focal lesions. PANCREAS: No masses. No significant calcifications. No adjacent inflammation or peripancreatic fluid collections. Pancreatic duct not dilated. GALLBLADDER: No identified stones by CT criteria. No inflammatory changes to suggest cholecystitis. ADRENAL GLANDS: No significant masses or asymmetry. RIGHT KIDNEY AND URETER: No solid masses. No significant calcifications. No hydronephrosis or hyd roureter. LEFT KIDNEY AND URETER: No solid masses. No significant calcifications. No hydronephrosis or hydr oureter. AORTA AND VESSELS: No aneurysm. No dissection. Renal arteries, SMA, celiac without stenosis. RETROPERITONEUM: No retroperitoneal adenopathy, hemorrhage or masses. BOWEL AND PERITONEAL CAVITY: No masses or inflammatory changes. No free fluid or peritoneal masses. APPENDIX: Normal. PELVIS: No mass. No free fluid. Normal bladder. ABDOMINAL WALL: No masses. No hernias. BONES: No significant or acute findings. OTHER: No other significant finding. IMPRESSION: NO SIGNIFICANT OR ACUTE FINDING IN THE ABDOMEN OR PELVIS ON CT SCAN WITH IV CONTRAST. TECHNICAL DOCUMENTATION: JOB ID: [id number] Quality ID # [id number]: Final reports with documentation of one or more dose reduction techniques (e.g., Au tomated exposure control, adjustment of the mA and/or kV according to patient size, use of iterative reconstruction technique) 2010 [employer]- All Rights Reserved Reading location - IP/workstation name: [email or web address]
[2019-08-25 15:09] VITALS: BP 121/54
== END 2019-08-25 15:09 | disposition home or self-care (01) ==
LOC: ER 10:23
DX: R10.31 Right lower quadrant pain (principal); R11.2 Nausea with vomiting, unspecified; Z90.49 Acquired absence of other specified parts of digestive tract
CPT/HCPCS: 99284; 96361; 96374; 96375; 36415; 84702; 83690; 85025; 80053; 81001; 74177; J3010; J2405; J7030

== ENCOUNTER → 2019-11-10 | Outpatient (CLI) | payer MEDICAID ==
--- NOTE | 2019-11-10 15:55 | RADIOLOGY REPORT (SQ) ---
EXAM DESCRIPTION: U/S [id number] TRNABD 1GES W/ODOP IMAGES COMPLETED DATE/TIME: 11/10/2019 3:00 pm REASON FOR STUDY: Z34.82 ENCOUNTER FOR SUPRVSN OF NORMAL Z34.82 ENCOUNTER FOR SUPRVSN OF NORMAL , SECOND TRI COMPARISON: None. TECHNIQUE: Transabdominal static and realtime grayscale images acquired of the pelvis. Additional se lected spectral and color Doppler images recorded. All images stored on PACs. bHCG: Not applicable. CLINICAL DATES: LMP 08/05/2019, 13 weeks 6 days. LIMITATIONS: None. FINDINGS: FETUS: Single Living intrauterine . ULTRASOUND EGA: 12 weeks 4 days ULTRASOUND AUSTYN: 05/20/2020 EFW: Not applicable less than 20 weeks. CRL: 6.2 cm. FHR: 165 beats per minute. SURVEY: No visualized anomalies. AMNIOTIC FLUID: Adequate amount. PLACENTA: Not yet developed due to early gestation. SUBCHORIONIC BLEED: No SIZE OF BLEED: Not applicable. UTERUS: No masses. No anomalies. CERVICAL LENGTH: 3.9 cm. Closed. RIGHT ADNEXA: Normal ovary with normal vascular flow. 2.1 x 2.2 x 1.7 cm. No adnexal free fluid. No adnexal masses. LEFT ADNEXA: Normal ovary with normal vascular flow. 2.7 x 2.5 x 1.6 cm. No adnexal free fluid. No adnexal masses. FREE FLUID: None. OTHER: No other significant finding. IMPRESSION: LIVING INTRAUTERINE . EGA 12 weeks 4 days. Trimester of : First trimester - 0 to 13 weeks. TECHNICAL DOCUMENTATION: JOB ID: [id number] 2010 [employer]- All Rights Reserved rev-10/29 Reading location - IP/workstation name: [email or web address]
== END ==
LOC: RAD 14:36
PROVIDERS: ATTEND Midwife
DX: Z34.81 Encounter for supervision of other normal pregnancy, first trimester (principal); Z3A.12 12 weeks gestation of pregnancy
CPT/HCPCS: 76801

== ENCOUNTER → 2020-01-03 | Outpatient (CLI) | payer MEDICAID ==
--- NOTE | 2020-01-03 13:58 | RADIOLOGY REPORT (SQ) ---
EXAM DESCRIPTION: U/S OB 14+ TRNABD 1GES W/O DOP IMAGES COMPLETED DATE/TIME: 01/03/2020 1:41 pm REASON FOR STUDY: Z34.82 ENCOUNTER FOR SUPRVSN OF NORMAL , SECOND TRIMESTER Z34.82 ENCOUNT ER FOR SUPRVSN OF NORMAL , SECOND TRI COMPARISON: 11/10/2019 TECHNIQUE: Static and Dynamic grayscale imaging performed of gravid uterus using transabdominal appr oach. Additional selected color Doppler and spectral images recorded. All stored on PACS. LIMITATIONS: None. FINDINGS: FETUSES SEEN:1 EGA: 19 weeks 13 days. Calculated using BPD,FL,HC,AC documented on images. No discrepancy with clini caprice dates. AUSTYN: 05/26/2020 EFW: 318 grams PERCENTILE: Not applicable. Fetus less than or equal to 20 weeks gestation. LVP: 3.3 x 8.4 cm. PLACENTA: Right lateral in location. GRADE: I PRESENTATION: Variable. ANATOMY: HEART RATE: 143 beats per minute. FOUR CHAMBER HEART: Visualized. THREE VESSEL CORD: Yes. CORD INSERTION: Visualized. KIDNEYS AND BLADDER: Visualized. Appear normal. STOMACH: Visualized. Appears normal. SPINE: Normal as visualized. BRAIN AND LATERAL VENTRICLES: Visualized. Appear normal. OTHER: No other significant finding. MATERNAL ADNEXA: Left ovary appears normal. Right ovary is not visualized. CERVICAL LENGTH: 4.2 cm. Closed. OTHER: No other significant finding. IMPRESSION: LIVING INTRAUTERINE . ESTIMATED GESTATIONAL AGE 19 WEEKS 3 DAYS. NO VISUALIZED ANOMALIES. Trimester of : Second trimester - 13 weeks 1 day to 27 weeks 6 days. TECHNICAL DOCUMENTATION: JOB ID: [id number] [employer]- All Rights Reserved Reading location - IP/workstation name: [email or web address]
== END ==
LOC: RAD 12:43
PROVIDERS: ATTEND Nurse Practitioner Family
DX: Z34.82 Encounter for supervision of other normal pregnancy, second trimester (principal)
CPT/HCPCS: 76805

== ENCOUNTER → 2020-05-14 | Outpatient (CLI) | payer MEDICAID ==
--- NOTE | 2020-05-14 15:50 | RADIOLOGY REPORT (SQ) ---
EXAM DESCRIPTION: U/S OB 14+ TRNABD 1GES W/O DOP IMAGES COMPLETED DATE/TIME: 05/14/2020 3:18 pm REASON FOR STUDY: Z34.83 ENCOUNTER FOR SUPRVSN OF NORMAL , THIRD TRIMESTER Z34.83 ENCOUNTE R FOR SUPRVSN OF NORMAL , THIRD TRIM COMPARISON: 01/03/2020 TECHNIQUE: Static and Dynamic grayscale imaging performed of gravid uterus using transabdominal appr oach. Additional selected color Doppler and spectral images recorded. All stored on PACS. LIMITATIONS: None. FINDINGS: FETUSES SEEN:1 EGA: 35 weeks 1 day Calculated using BPD,FL,HC,AC documented on images. 4 weeks discrepancy with cli nical dates. AUSTYN: 06/17/2020 EFW: 2633+/- 390 grams PERCENTILE: Not calculated. JOSIAH: 19 cm. PLACENTA: Fundal and right lateral. GRADE: II PRESENTATION: Transverse with head to the maternal right. ANATOMY: anatomy was not assessed. MATERNAL ADNEXA: Maternal ovaries not visualized. CERVICAL LENGTH: 4.3 cm. Closed. OTHER: No other significant finding. IMPRESSION: There is concern for intrauterine growth retardation. Gestational age by ultrasound lag s clinical gestational age and gestational age by prior ultrasound by about 4 weeks. Ultrasound gest ational age on today's study 35 weeks 1 day. Trimester of : Third trimester - 28 weeks to delivery. COMMENT: Attempted to contact the ordering provider at the number given but without success at 1543 hours on this date. TECHNICAL DOCUMENTATION: JOB ID: [id number] 2010 [employer]- All Rights Reserved Reading location - IP/workstation name: [email or web address]
== END ==
LOC: RAD 14:47
PROVIDERS: ATTEND Midwife
DX: Z34.83 Encounter for supervision of other normal pregnancy, third trimester (principal); Z3A.35 35 weeks gestation of pregnancy
CPT/HCPCS: 76805

== ENCOUNTER 2020-05-15 10:09 | Outpatient (CLI) | payer MEDICAID ==
--- NOTE | 2020-05-15 11:55 | Non Stress Test Report ---
Non Stress Test Datetime Report Generated by CPN: 05/15/2020 11:55 INDICATION Indication for Study (NST) Other: Repeat NST from [facility] VITAL SIGNS Temperature - NST: 97.3 Pulse - NST: 88 RESP - NST: 17 MONITORING Monitor Explained: Monitor Explained; Test Explained; Patient Verbalized Understanding Time on Monitor: 05/15/2020 11:09 Time off Monitor: 05/15/2020 11:31 NST Duration: 22 NST INTERVENTIONS NST Interventions: Reposition Patient Physician Notified NST: C. Alcaraz, CNM BABY A: [id number] BABY A Movement : Present Contraction Frequency : None FHR Baseline : 135 Accelerations : 15X15 Decelerations : None Variability : Moderate 6-25bpm NST Review: Meets Criteria for Reactive NST NST Review and Verified By : ASHIA Pena Results: Reactive NST REPORT Report Trigger: Send Report
== END 2020-05-15 11:38 | disposition home or self-care (01) ==
LOC: LC 10:09
PROVIDERS: ATTEND Obstetrics & Gynecology
DX: Z34.83 Encounter for supervision of other normal pregnancy, third trimester (principal); Z3A.39 39 weeks gestation of pregnancy; Z88.1 Allergy status to other antibiotic agents
CPT/HCPCS: 59025; 94760

== ENCOUNTER 2020-05-22 09:55 | Outpatient (CLI) | payer MEDICAID ==
--- NOTE | 2020-05-22 11:20 | Non Stress Test Report ---
Non Stress Test Datetime Report Generated by CPN: 05/22/2020 11:20 DEMOGRAPHIC Test Number: 2 EGA NST: 40.2 VITAL SIGNS Temperature - NST: 97.8 Pulse - NST: 88 RESP - NST: 18 NBPSYS NST: 119 NBPDIA NST: 67 MONITORING Monitor Explained: Monitor Explained; Test Explained; Patient Verbalized Understanding Time on Monitor: 05/22/2020 10:17 Time off Monitor: 05/22/2020 11:19 NST Duration: 62 NST INTERVENTIONS NST Interventions: PO Hydration; Reposition Patient Physician Notified NST: Dr May BABY A: [id number] BABY A Movement : Present Contraction Frequency : 0 FHR Baseline : 130 Accelerations : 15X15 Decelerations : None Variability : Moderate 6-25bpm NST Review: Meets Criteria for Reactive NST NST Review and Verified By : Pilar Marques RN NST Results: Reactive NST REPORT Report Trigger: Send Report
--- NOTE | 2020-05-22 12:54 | RADIOLOGY REPORT (SQ) ---
EXAM DESCRIPTION: U/S OB LIMITED IMAGES COMPLETED DATE/TIME: 05/22/2020 11:20 am REASON FOR STUDY: WELL BEING PRESENTATION COMPARISON: None. TECHNIQUE: Limited and abdominal grayscale ultrasound for evaluation of specific requested obstetric al parameters. LIMITATIONS: None. FINDINGS: CERVICAL LENGTH: Transabdominal images of the cervix demonstrate cervical length 3.9%. No internal funneling or fluid. JOSIAH: Adequate amount. LVP 4.9 x 8.2 cm. FHR: 136 beats per minute. PRESENTATION: Cephalic. PLACENTA: Fundal and right lateral, grade 1 ANATOMY: Not assessed OTHER: No other significant findings. IMPRESSION: LIMITED OBSTETRICAL ULTRASOUND WITH MEASURED PARAMETERS DELINEATED ABOVE. Trimester of : Third trimester - 28 weeks to delivery. TECHNICAL DOCUMENTATION: JOB ID: [id number] [employer] All Rights Reserved Reading location - IP/workstation name: [email or web address]
== END 2020-05-22 13:28 | disposition home or self-care (01) ==
LOC: LC 09:55
PROVIDERS: ATTEND Obstetrics & Gynecology Gynecology
DX: O48.0 Post-term pregnancy (principal); Z3A.40 40 weeks gestation of pregnancy; Z88.1 Allergy status to other antibiotic agents
CPT/HCPCS: 59025; 76815

== ENCOUNTER 2020-05-24 09:41 | Inpatient (IN) | payer MEDICAID ==
[2020-05-24] MEDS ORDERED: LIDOCAINE 1% INJ-PF (10 MG/ML) 30 ML SDV ONE (10:25)
[2020-05-24] MEDS ORDERED: MISOPROSTOL 0.1 MG TABLET ONE (10:25)
[2020-05-24] MEDS ORDERED: RINGERS SOLUTION,LACTATED 1,000 ML IV PRN ×2 (10:25→19:43)
[2020-05-24] MEDS ORDERED: MISOPROSTOL 0.2 MG TABLET ONE (10:25)
[2020-05-24] MEDS ORDERED: RINGERS SOLUTION,LACTATED 1,000 ML IV ONE (10:25)
[2020-05-24] MEDS ORDERED: OXYTOCIN 10 UNIT/ML VIAL ONE ×3 (10:25→18:58)
[2020-05-24] MEDS ORDERED: OXYTOCIN/0.9 % SODIUM CHLORIDE 0 UNIT/0 ML RTUINJ ONE (10:26)
--- NOTE | 2020-05-24 10:58 | Admission Physical ---
Datetime Report Generated by CPN: 05/24/2020 10:58 CURRENT ADMISSION Indication for Induction: IUGR Admit Impression : Term, Intrauterine ; No Active Labor Admit Plan: Admit to Unit; Initiate Labor Induction Protocol ALLERGIES Medication Allergies: Yes Medication Allergies: cefixime/CO/Hives (05/24/2020) Latex: No Latex Allergies OBSTETRICAL HISTORY EDC: 05/20/2020 00:00 : 3 Para: 2 Term: 2 : 0 SAB: 0 IAB: 0 Livin Gestational Diabetes: No Rh Sensitization: No Incompetent Cervix: No RALPH: No Infertility: No ART Treatment: No Uterine Anomaly: No IUGR: No Hx Previous C/S: No Macrosomia: No Hx Loss/Stillborn: No PIH: No Hx : No Placenta Previa/Abruption: No Depression/PP Depression: Yes PTL/PROM: No Post Hemorrhage: No SEE RECORDS Alcohol: No Marijuana : No Cocaine: No Other Illicit Drugs: No Cigarettes: Never Smoker. [id number] MEDICAL HISTORY Diabetes: No Blood Transfusion: No Pulmonary Disease (Asthma, TB): No Breast Disease: No Hypertension: No Evp Operations Surgery: Yes Heart Disease: No Hosp/Surgery: Yes Autoimmune Disorder: No Anesthetic Complications: No Kidney Disease: No Abnormal Pap Smear: No Neuro/Epilepsy: No Psychiatric Disorders: Yes Other Medical Diseases: No Hepatitis/Liver Disease: No Significant Family History: No Varicosities/Phlebitis: No Trauma/Violence : No Thyroid Dysfunction: Yes Medical History Comments: PP depression, hypothyroidism, gall bladder surgery INFECTIOUS HISTORY Gonorrhea: No Genital Herpes: No Chlamydia: No Tuberculosis: No Syphilis: No Hepatitis: No HIV/AIDS Exposure: No Rash or Viral Illness: No HPV: No PHYSICAL EXAM General: Normal HEENT: Normal Neurologic: Normal Thyroid: Normal Heart: Normal Lungs: Normal Breast: Normal Back: Normal Abdomen: Normal Genitourinary Exam: Normal Extremities: Normal DTRs: Normal Pelvic Type: Adequate Vital Signs: Reviewed VAGINAL EXAM Contraction Comments: 0 MEMBRANES Membranes: Intact FETUS A Monitoring: External US FHR- Baseline: 130 Variability: Moderate 6-25bpm Accelerations: 15X15 Decelerations: None Admit Comment: at 40.0 wks here for IOL due to IUGR. Pt doing well this morning, no complaints, +FM. Vtx on spot check u/s today. Pt w/ Hx HSV, perineum inspected by Dr Laird on admission, no suspicious lesions noted on exam. Ve per Dr Laird, /1. GBS negative. Plan Taveras's catheter for cervical ripening. PLANS FOR LABOR AND DELIVERY Labor and Delivery: None Pain Management: Natural Feeding Preference: Breast Circumcision: N/A INFORMED CONSENT Assignment: Miguelina Laird MD Signature: with User ID: [email or web address] : with User ID: [email or web address]
[2020-05-24] MEDS ORDERED: MISOPROSTOL 0.1 MG TABLET PO ONE (11:03)
[2020-05-24] MEDS ORDERED: MISOPROSTOL 0.1 MG TABLET PV ONE (11:03)
[2020-05-24 11:13] LABS: HEMATOCRIT 33.9 % (36.0-47.0); HEMOGLOBIN 11.8 g/dL (12.0-15.5); MEAN CORPUSCULAR HEMOGLOBIN 32.5 pg (27.0-33.4); MEAN CORPUSCULAR HGB CONC 34.7 g/dL (32.0-36.0); MEAN CORPUSCULAR VOLUME 94 fl (80-97); PLATELET COUNT 254 10^3/uL (150-450); RED BLOOD COUNT 3.62 10^6/uL (3.72-5.28); RED CELL DISTRIBUTION WIDTH 13.2 % (11.5-14.0); WHITE BLOOD COUNT 7.5 10^3/uL (4.0-10.5)
[2020-05-24 11:26] LABS: URINE AMPHETAMINES SCREEN NEGATIVE; URINE BARBITURATES SCREEN NEGATIVE; URINE BENZODIAZEPINES SCREEN NEGATIVE; URINE COCAINE SCREEN NEGATIVE; URINE MARIJUANA (THC) SCREEN NEGATIVE; URINE METHADONE SCREEN NEGATIVE; URINE PHENCYCLIDINE SCREEN NEGATIVE
[2020-05-24] MEDS ORDERED: TERBUTALINE SULFATE INJ/PF 1 MG/1 ML SDV ONE (11:36)
--- NOTE | 2020-05-24 12:11 | L&D Progress Notes ---
PROGRESS NOTES Datetime Report Generated by CPN: 05/24/2020 12:10 PROGRESS NOTE Impression Other: prolonged decel after Cytotec Plan: Continue Present Management; Induction; Cervical Ripening Plan Other: Terbutaline given SQ Vital Signs : Reviewed Comment: Prolonged decel x 2 after Cytotec PO/ PV. Position changes made, IVF bolus given, O2 applied, pt in hands and knees. Dr Laird in room as well to review fHR tracing. .25 SQ Terbutaline given. Will continue to watch FHR tracing closely. Dr Laird agrees w/ plan of care VAGINAL EXAM Contractions: 0 LAST VAGINAL EXAM-NURSING Nursing Exam Dilitation: 1.0 Nursing Exam Effacement: thick Nursing Exam Station: high MEMBRANES Membranes: Intact FETUS A FHR - Baseline: 100 Monitoring: External US Accelerations: Prolonged SIGNATURE SIGNATURE: [id number];[id number];13,[id number] Assignment: Miguelina Laird MD Signature: with User ID: [email or web address] : with User ID: [email or web address]
[2020-05-24 14:43] LABS: APPEARANCE,URINE SLIGHTLY-CLOUDY; BILIRUBIN,URINE NEGATIVE (NEGATIVE); COLOR,URINE YELLOW; GLUCOSE, URINE NEGATIVE (NEGATIVE); KETONES,URINE NEGATIVE (NEGATIVE); LEUKOCYTE ESTERASE,URINE MODERATE (NEGATIVE); NITRITE,URINE NEGATIVE (NEGATIVE); PROTEIN,URINE NEGATIVE (NEGATIVE); UROBILINOGEN,URINE NEGATIVE mg/dL (<2.0)
[2020-05-24] MEDS ORDERED: OXYTOCIN/0.9 % SODIUM CHLORIDE 30 UNIT/500 ML RTUINJ IV PRN ×2 (15:27→19:43)
[2020-05-24] MEDS ORDERED: FENTANYL/BUPIVACAINE/NS/PF 0 MCG/0 ML RTUINJ EPI ONE (18:15)
[2020-05-24] MEDS ORDERED: ROPIVACAINE HCL 0.2% INJ/PF (2 MG/ML) 20 ML SDV ONE (18:15)
[2020-05-24] MEDS ORDERED: EPHEDRINE SULFATE INJ 50 MG/1 ML AMPULE ONE (18:15)
[2020-05-24] MEDS ORDERED: CEFAZOLIN 2 GM/D5W RTU 2 GM/50 ML RTUPB IV ONE (18:19)
[2020-05-24] MEDS ORDERED: ACETAMINOPHEN 1,000 MG/100 ML RTUPB IV ONE (18:33)
[2020-05-24] MEDS ORDERED: PHENYLEPHRINE HCL INJ/PF 10 MG/1 ML SDV ONE (18:33)
[2020-05-24] MEDS ORDERED: FENTANYL CITRATE INJ/PF 100 MCG/2 ML AMPUL ONE ×2 (18:33→19:04)
[2020-05-24] MEDS ORDERED: KETOROLAC TROMETHAMINE INJ/PF 30 MG/1 ML SDV ONE (18:33)
[2020-05-24] MEDS ORDERED: METHYLERGONOVINE MALEATE INJ/PF 0.2 MG/1 ML AMPULE ONE (18:37)
[2020-05-24] MEDS ORDERED: ONDANSETRON HCL INJ/PF 4 MG/2 ML SDV ONE (18:57)
[2020-05-24] MEDS ORDERED: MORPHINE SULFATE 10 MG/ML INJ ONE (19:32)
[2020-05-24] MEDS ORDERED: MEASLES,MUMPS&RUBELLA VACC/PF 0.5 ML VIAL SUBCUT PRN (19:43)
[2020-05-24] MEDS ORDERED: ACETAMINOPHEN 325 MG TABLET PO PRN (19:43)
[2020-05-24] MEDS ORDERED: DIPH/PERTUSS(ACELL)/TETANUS VAC/PF 0.5 ML SYR (>=10YO) IM PRN (19:43)
[2020-05-24] MEDS ORDERED: OXYCODONE-ACETAMINOPHEN 5-325 MG TABLET PO PRN (19:43)
[2020-05-24] MEDS ORDERED: PROMETHAZINE HCL INJ 25 MG/1 ML VIAL IV PRN (19:43)
[2020-05-24] MEDS ORDERED: ACETAMINOPHEN 1,000 MG/100 ML RTUPB IV PRN (19:43)
[2020-05-24] MEDS ORDERED: SIMETHICONE 80 MG TAB.CHEW PO PRN (19:43)
[2020-05-24] MEDS ORDERED: HYDROMORPHONE HCL INJ/PF 2 MG/ML AMPULE IV PRN (19:43)
[2020-05-24] MEDS ORDERED: GENTAMICIN SULFATE INJ 80 MG/2 ML VIAL IV ONE (19:51)
--- NOTE | 2020-05-24 19:57 | Brief Operative Note ---
BRIEF OPERATIVE REPORT DATE OF SURGERY: 05/24/20 TIME OF SURGERY: 18:50 PREOPERATIVE DIAGNOSIS: Severe IUGR <6%, Non reassuring FWB, H/o HSV (no lesions), Hx of Hypothyroidism (no medication), POSTOPERATIVE DIAGNOSIS: FELA - delivered, Meconium, Nuchal cord tight x 1 SURGEON: RAJ SWENSON FINDINGS: VFI delivered at 1848, Apgars 9/9, weight 2415g . Very tight nuchal cord and very thin cord and small placenta. Placenta and cord sent for pathology. IVF 1000ml, UOP 300ml, EBL 600ml, QBL pending. Normal bilateral tubes/ovaries COMPLICATIONS: none ESTIMATED BLOOD LOSS: 600ml TISSUE REMOVED OR ALTERED: placenta and cord TECHNICAL PROCEDURE: Primary section
--- NOTE | 2020-05-24 20:29 | Delivery Summary ---
Del Sum A-C Datetime Report Generated by CPN: 05/24/2020 20:29 DELIVERY PERSONNEL DELIVERY PERSONNEL: [id number] Delivery Doctor:: Miguelina Laird MD INTERNATIONAL STUDENT COUNSELOR:: Akosua Oliveira CRNA Labor and Delivery Nurse:: Simin Mcdaniel RN Preparation Supervisor:: Josiane Bedolla RN Neonatal Nurse Practitioner:: SASKIA Smith Child & Adolescent Psychiatrist/COMPUTED TOMOGRAPHY SCANNER OPERATOR: [facility] Child [facility] Adolescent Psychiatrist/COMPUTED TOMOGRAPHY SCANNER OPERATOR: Sydni Borrero, SVP RESEARCH & EBUSINESS OPERATIONS MATERNAL INFORMATION Delivery Anesthesia: Spinal Medications After Delivery: Pitocin Drip 20 Units/1000ml NSS Estimated Blood Loss (ml): 600 Maternal Complications: None LABOR SUMMARY EDC: 05/20/2020 00:00 No. Babies in Womb: 1 Attempted: No Labor Anesthesia: Epidural LABOR INFORMATION Reason for Induction: Intrauterine Growth Retardation Cervical Ripening Agents: Cytotec @ Oxytocin: N/A Group B Beta Strep: Negative Antibiotics # of Doses: 1 Antibiotics Time of Last Dose: 05/24/2020 18:50 Name of Antibiotic Given: Ancef 2g Steroids Given: None Reason Steroids Not Administered: Not Applicable MEMBRANES Membranes Rupture Method: Artificial Amniotic Fluid Color: Clear Amniotic Fluid Amount: Large Amniotic Fluid Odor: Normal STAGES OF LABOR Stage 3 hr: 0 Stage 3 min: 1 VAGINAL DELIVERY Episiotomy: None Laceration #1: None Laceration Extension #1: N/A Sponge Count Correct: N/A Sharps Count Correct: N/A CSECTION DELIVERY Primary Indication: Nonreassuring Status CSection Urgency: Emergency CSection Incidence: Primary Labor: Labor Elective: N/A CSection Incision: Lower Uterine Transverse BABY A INFORMATION Infant Delivery Date/Time: 05/24/2020 18:48 Method of Delivery: Nurse Controlled Delivery: No Born in Route : No : N/A Forceps: N/A Vacuum Extraction: N/A Shoulder Dystocia : No PRESENTATION/POSITION BABY A Presentation: Cephalic Cephalic Presentation: Vertex Breech Presentation: N/A PLACENTA INFORMATION BABY A Placenta Delivery Time : 05/24/2020 18:49 Placenta Method of Delivery: Manual Removal Placenta Status: Delivered SCORES BABY A Heart Rate 1 min: >100 bpm Resp Effort 1 min: Good Cry Reflex Irritability 1 min: Cough or Sneeze or Pulls Away Muscle Tone 1 min: Active Motion Color 1 min: Body [place], Extremities Blue Resuscitation Effort 1 min: Tactile Stimulation SCORE 1 MIN: 9 Heart Rate 5 min: >100 bpm Resp Effort 5 min: Good Cry Reflex Irritability 5 min: Cough or Sneeze or Pulls Away Muscle Tone 5 min: Active Motion Color 5 min: Body [place], Extremities Blue SCORE 5 MIN: 9 INFORMATION BABY A Gestational Age at Delivery: 40.4 Gestational Status: Full Term- 39- 40.6 Weeks Outcome : Liveborn Condition : Stable Infant Sex: Female IDENTIFICATION BABY A Verification Date/Time: 05/24/2020 19:30 ID Band Number: [id number] Mother's Name Verified: Yes RN Verifying Infant: TAnabell Teresa, RN WEIGHT/LENGTH BABY A Infant Birthweight (gm): 2415 Weight (lb): 5 Weight (oz): 5 Length (in): 18.25 Length (cm): 46.36 CORD INFORMATION BABY A No. Cord Vessels: 3 Nuchal Cord : Around Neck x1, Tight Cord Blood Taken: Yes-For Storage (Mom's Blood type +) Suction: None ASSESSMENT BABY A Skin to Skin: Yes BABY B INFORMATION : Successful
--- NOTE | 2020-05-24 20:29 | Birth Certificate Data ---
Cert Data Datetime Report Generated by CPN: 05/24/2020 20:29 CERTIFICATE DATA Delivery Provider: Miguelina Laird MD (05/24/2020 19:18:Simin Mcdaniel RN) 47a. Care: Yes (05/15/2020 10:26:Leatha Cadet RN) 47b. Date of First Visit: 10/27/2019 00:00 (05/15/2020 10:26:Leatha Cadet RN) 48b. Now Livin (05/15/2020 10:26:Elizabeth Momin RN) RISK FACTORS IN THIS 49a. Diabetes: No (05/15/2020 10:26:Leatha Cadet RN) 49b. Hypertension: No (05/15/2020 10:26:Leatha Cadet RN) 49c. Previous Births: 0 (05/15/2020 10:26:Elizabeth Momin RN) 49d. Stillborns: No (05/15/2020 10:26:Leatha Cadet RN) 49d. IUGR: No (05/15/2020 10:26:Leatha Cadet RN) 49e. Infertility Treatment: No (05/15/2020 10:26:Leatha Cadet RN) Mother's Height 50b. Height Inches: 62 (05/24/2020 09:59:QS system process) Mother's Weight 51b. Weight at Delivery (lbs): 169 (05/24/2020 09:59:QS system process) 52. Dt Last Normal Menses Began: 08/04/2019 00:00 (05/15/2020 10:26:Leatha Cadet RN) Infections Present/Treated 53a. Gonorrhea: No (05/15/2020 10:26:Leatha Cadet RN) Results this Hospital Visit : Negative (05/15/2020 10:26:Simin Mcdaniel RN) 53b. Syphilis: No (05/15/2020 10:26:Leatha Cadet RN) 53c. Chlamydia: No (05/15/2020 10:26:Leatha Cadet RN) Results this Hospital Visit: Negative (05/15/2020 10:26:Simin Mcdaniel RN) 53d. Hepatitis B: No (05/15/2020 10:26:Leatha Cadet RN) Results this Hospital Visit: Negative (05/15/2020 10:26:Simin Mcdaniel RN) 53e. Hepatitis C: Negative (05/15/2020 10:26:Leatha Cadet RN) 53h. Mother Tested for HBsAG: Yes (05/15/2020 10:26:Leatha Cadet RN) 53i. Date Tested: 11/08/2019 00:00 (05/15/2020 10:26:Leatha Cadet RN) 53j. Test Result: Negative (05/15/2020 10:26:Simin Mcdaniel RN) Cigarette Smoking Cigarette Smoking: Never Smoker. [id number] (05/15/2020 10:26:Leatha Cadet RN) 57a. Induction of Labor: N/A (05/15/2020 10:26:Simin Mcdaniel RN) 57a. Induction of Labor: Cytotec @ (05/24/2020 11:08:Simin Mcdaniel RN) 57c. Non-Vertex Presentation A: Vertex (05/15/2020 10:26:Simin Mcdaniel RN) 57d. Steroids - Lung Mat: None (05/15/2020 10:26:Simin Mcdaniel RN) 57d. Steroids - Lung Mat: Not Applicable (05/15/2020 10:26:Simin Mcdaniel RN) 57e. Antibiotics During Labor: 05/24/2020 18:50 (05/15/2020 10:26:Simin Mcdaniel RN) 57f. Mat [place] or Temp >100.4: 98.7 (05/15/2020 10:26:Simin Mcdaniel RN) 57g. Moderate/Heavy Meconium: Clear (05/24/2020 17:58:Simin Mcdaniel RN) 57h. Intolerance of Labor: Nonreassuring Status (05/15/2020 10:26:Simin Mcdaniel RN) 57i. Epidural/Spinal Anesthesia: Epidural (05/15/2020 10:26:Simin Mcdaniel RN) Method of Delivery 58a. Forceps - Unsuccessful A: N/A (05/15/2020 10:26:Simin Mcdaniel RN) 58b. Vacuum - Unsuccessful A: N/A (05/15/2020 10:26:Simin Mcdaniel RN) 58c. Presentation at 58c. Presentation at - A : Vertex (05/15/2020 10:26:Simin Mcdaniel RN) 58c. Presentation at - A : N/A (05/15/2020 10::Simin Mcdaniel RN) 58c. Presentation at - A : Cephalic (05/15/2020 10:26:SASKIA Orta) Final Route and Method of Del 58d. Baby A Route/Delivery: (05/15/2020 10:26:SASKIA Orta) 58e. Trial of Labor Attempted: No (05/15/2020 10:26:Simin Mcdaniel RN) 58e. Trial of Labor Attempted A: N/A (05/15/2020 10:26:Simin Mcdaniel RN) 58e. Trial of Labor Attempted B: Successful (05/15/2020 10:26:Simin Mcdaniel RN) Maternal Morbidity 59b. 3rd or 4th Degree Lacs: None (05/15/2020 10:26:Simin Mcdaniel RN) Birthweight Baby A: 2415 (05/15/2020 10:26:SHARA OrtaP) 60a. Pounds : 5 (05/15/2020 10:26:QS system process) 60b. Ounces: 5 (05/15/2020 10:26:QS system process) 61. GA at Delivery Baby A: 40.4 (05/15/2020 10:26:[facility]) : Full Term- 39- 40.6 Weeks (05/15/2020 10:26:QS system process) 62a. 5 Minute Baby A: 9 (05/15/2020 10:26:QS system process)
[2020-05-24] MEDS ORDERED: GENTAMICIN SULFATE INJ 80 MG/2 ML VIAL IV SCH (22:00)
[2020-05-24] MEDS: CLINDAMYCIN 900 MG/D5W RTU 900 MG/50 ML RTUPB IV SCH (22:55)
[2020-05-25] MEDS: IBUPROFEN 800 MG TABLET PO SCH ×4 (00:13→17:33)
[2020-05-25] MEDS: CLINDAMYCIN 900 MG/D5W RTU 900 MG/50 ML RTUPB IV SCH ×2 (05:19→14:15)
[2020-05-25] MEDS ORDERED: GENTAMICIN SULFATE INJ 80 MG/2 ML VIAL ONE ×2 (06:18→22:19)
[2020-05-25] MEDS: GENTAMICIN SULFATE 110 MG in DEXTROSE 5%-WATER 100 ML IV SCH ×3 (06:36→22:29)
[2020-05-25 06:41] LABS: HEMATOCRIT 29.1 % (36.0-47.0); HEMOGLOBIN 10.2 g/dL (12.0-15.5); MEAN CORPUSCULAR HEMOGLOBIN 33.2 pg (27.0-33.4); MEAN CORPUSCULAR VOLUME 95 fl (80-97); PLATELET COUNT 202 10^3/uL (150-450); RED BLOOD COUNT 3.07 10^6/uL (3.72-5.28); RED CELL DISTRIBUTION WIDTH 13.2 % (11.5-14.0); WHITE BLOOD COUNT 9.2 10^3/uL (4.0-10.5)
--- NOTE | 2020-05-25 10:40 | PDOC PROGRESS REPORT ---
Subjective-OB Progress Note for:: 05/25/20 - POD #1, doing well, s/p Primary , UOB, voiding, O+, on IV antibiotics, Physical Exam (OB) Vital Signs: Temp Pulse Resp BP Pulse Ox 97.7 F 79 18 94/51 L 97 05/25/20 09:46 05/25/20 07:10 05/25/20 07:10 05/25/20 07:10 05/25/20 07:10 Intake & Output 05/24/20 05/25/20 05/26/20 06:59 06:59 06:59 Intake Total 850 Output Total 2000 400 Balance -1150 -400 Weight 76.5 kg - General General Appearance: Appears well, Alert In distress: None - PIH/Pre-Eclampsia DTR's: 2 + Clonus: Negative Headache: Absent Epigastric Pain: No Visual Changes: No - Dressing Removed: No Incision: Well Approximated Closure Type: Surgical Glue - Maternal Morbidity 59. Maternal Morbidity (serious complications experinced by the mother associated with labor and delivery: None of the above - Lochia Lochia Amount: Small 10-25 ml Lochia Color: Rubra/Red - Abdomen Description: Tender, Soft Hernia Present: No Fundal Description: Firm, Midline Fundal Height: u/u - u/2 - Respiratory Respiratory Status: No respiratory distress Breath sounds: Clear - Cardiovascular Rhythm: Regular - Abdominal Distension: No distension - Genitourinary Genitourinary Note: voiding - Extremities Upper extremity: Normal inspection Lower extremities: Normal inspection - Neurological Cognition: Normal Orientation: AAOx4 - Psychological Associated symptoms: Normal affect, Normal mood - Skin Skin Temperature: Warm Skin Moisture: Dry Objective-Diagnostic Laboratory: 05/25/20 05:59 05/24/20 05/24/20 05/24/20 10:05 10:56 10:56 WBC 7.5 RBC 3.62 L Hgb 11.8 L Hct 33.9 L MCV 94 MCH 32.5 MCHC 34.7 RDW 13.2 Plt Count 254 Urine Color YELLOW Urine Appearance SLIGHTLY-CLOUDY Urine pH 7.0 Ur Specific [place] 1.010 Urine Protein NEGATIVE Urine Glucose (UA) NEGATIVE Urine Ketones NEGATIVE Urine Blood NEGATIVE Urine Nitrite NEGATIVE Ur Leukocyte Esterase MODERATE H Urine WBC (Auto) 1 Urine RBC (Auto) 0 Blood Type O POSITIVE Antibody Screen NEGATIVE 05/25/20 05:59 WBC 9.2 RBC 3.07 L Hgb 10.2 L Hct 29.1 L MCV 95 MCH 33.2 MCHC 35.0 RDW 13.2 Plt Count 202 Urine Color Urine Appearance Urine pH Ur Specific [place] Urine Protein Urine Glucose (UA) Urine Ketones Urine Blood Urine Nitrite Ur Leukocyte Esterase Urine WBC (Auto) Urine RBC (Auto) Blood Type Antibody Screen Assessment and Plan(PN) - Assessment and Plan (1) Herpes infection during , antepartum Is this a current diagnosis for this admission?: Yes (2) Intrauterine growth restriction affecting antepartum care of mother Qualifiers: Fetus number: single or unspecified fetus Qualified Code(s): O36.5990 - Maternal care for other known or suspected poor growth, unspecified trimester, not applicable or unspecified Is this a current diagnosis for this admission?: Yes (3) Non-reassuring electronic monitoring tracing Is this a current diagnosis for this admission?: Yes (4) S/P primary low transverse Is this a current diagnosis for this admission?: Yes (5) LGSIL (low grade squamous intraepithelial dysplasia) Is this a current diagnosis for this admission?: Yes Plan:: Ambulation encouraged, Routine PP and POst Op orders, Antibiotics x 24 hours - Time Spent with Patient Time with patient: Less than 15 minutes Medications reviewed and adjusted accordingly: Yes - Disposition Anticipated Discharge Disposition: Home, Self Care Anticipated Discharge Timeframe: within 48 hours
[2020-05-25] MEDS: DOCUSATE SODIUM 100 MG CAPSULE PO SCH ×2 (11:04→17:34)
[2020-05-25] MEDS: PRENATAL VITAMIN W DHA CAPSULE PO SCH (11:04)
[2020-05-25] MEDS: OXYCODONE-ACETAMINOPHEN 5-325 MG TABLET PO PRN ×2 (11:10→17:33)
[2020-05-26] MEDS: OXYCODONE-ACETAMINOPHEN 5-325 MG TABLET PO PRN ×2 (00:12→12:15)
[2020-05-26] MEDS: IBUPROFEN 800 MG TABLET PO SCH ×3 (00:13→12:23)
[2020-05-26] MEDS: DOCUSATE SODIUM 100 MG CAPSULE PO SCH (10:31)
[2020-05-26] MEDS: PRENATAL VITAMIN W DHA CAPSULE PO SCH (10:31)
--- NOTE | 2020-05-26 10:43 | PDOC DISCHARGE SUMMARY ---
Impression - Admit/DC Date/PCP Admission Date/Primary Care Provider: 05/24/20 09:41 RAJ SWENSON MD Discharge Date: 05/26/20 - POD #2, doing well, desires to go home today. O+, rubella Immune, - Discharge Diagnosis (1) Herpes infection during , antepartum Is this a current diagnosis for this admission?: Yes (2) Intrauterine growth restriction affecting antepartum care of mother Is this a current diagnosis for this admission?: Yes (3) Non-reassuring electronic monitoring tracing Is this a current diagnosis for this admission?: Yes (4) S/P primary low transverse Is this a current diagnosis for this admission?: Yes (5) LGSIL (low grade squamous intraepithelial dysplasia) Is this a current diagnosis for this admission?: Yes - Additional Information Resuscitation Status: Full Code Discharge Diet: As Tolerated, Regular Discharge Activity: Activity As Tolerated, No Driving, No Lifting Over 10 Pounds, Pelvic Rest Referrals: RAJ SWENSON MD [Primary Care Provider] - Prescriptions: Ibuprofen [Motrin 800 mg Tablet] 800 mg PO Q6 #60 tablet Oxycodone HCl/Acetaminophen [Percocet 5-325 mg Tablet] 1 tab PO Q4HP PRN #30 tablet PRN Reason: Pain Scale Of 4 Home Medications: Prenat 115/Iron Fum/Folic/Dss [ 19 Tablet] 1 tab PO DAILY 05/15/20 Valacyclovir HCl [Valtrex 500 mg Tablet] 1 tab PO BID 05/15/20 Ibuprofen [Motrin 800 mg Tablet] 800 mg PO Q6 #60 tablet 05/26/20 Oxycodone HCl/Acetaminophen [Percocet 5-325 mg Tablet] 1 tab PO Q4HP PRN #30 tablet 05/26/20 HPI Reason(s) for Admission: Induction of Labor Admission Note: SGA baby Procedures: NST, Ultrasound Intrapartum Procedure(s): : Low Cervical, Transverse, Other - intolerance to labor Hospital Course 59. Maternal Morbidity (serious complications experinced by the mother associated with labor and delivery: None of the above Results Laboratory Results: WBC 9.2 10^3/uL (4.0-10.5) 05/25/20 05:59 RBC 3.07 10^6/uL (3.72-5.28) L 05/25/20 05:59 Hgb 10.2 g/dL (12.0-15.5) L 05/25/20 05:59 Hct 29.1 % (36.0-47.0) L 05/25/20 05:59 MCV 95 fl (80-97) 05/25/20 05:59 MCH 33.2 pg (27.0-33.4) 05/25/20 05:59 MCHC 35.0 g/dL (32.0-36.0) 05/25/20 05:59 RDW 13.2 % (11.5-14.0) 05/25/20 05:59 Plt Count 202 10^3/uL (150-450) 05/25/20 05:59 Urine Color YELLOW 05/24/20 10:05 Urine Appearance SLIGHTLY-CLOUDY 05/24/20 10:05 Urine pH 7.0 (5.0-9.0) 05/24/20 10:05 Ur Specific [place] 1.010 05/24/20 10:05 Urine Protein NEGATIVE mg/dL (NEGATIVE) 05/24/20 10:05 Urine Glucose (UA) NEGATIVE mg/dL (NEGATIVE) 05/24/20 10:05 Urine Ketones NEGATIVE mg/dL (NEGATIVE) 05/24/20 10:05 Urine Blood NEGATIVE (NEGATIVE) 05/24/20 10:05 Urine Nitrite NEGATIVE (NEGATIVE) 05/24/20 10:05 Urine Bilirubin NEGATIVE (NEGATIVE) 05/24/20 10:05 Urine Urobilinogen NEGATIVE mg/dL (<2.0) 05/24/20 10:05 Ur Leukocyte Esterase MODERATE (NEGATIVE) H 05/24/20 10:05 Urine WBC (Auto) 1 /HPF 05/24/20 10:05 Urine RBC (Auto) 0 /HPF 05/24/20 10:05 Squamous Epi Cells Auto 7 /HPF 05/24/20 10:05 Urine Mucus (Auto) RARE /LPF 05/24/20 10:05 Urine Ascorbic Acid NEGATIVE (NEGATIVE) 05/24/20 10:05 Urine Opiates Screen NEGATIVE 05/24/20 10:05 Urine Methadone Screen NEGATIVE 05/24/20 10:05 Ur Barbiturates Screen NEGATIVE 05/24/20 10:05 Ur Phencyclidine Scrn NEGATIVE 05/24/20 10:05 Ur Amphetamines Screen NEGATIVE 05/24/20 10:05 U Benzodiazepines Scrn NEGATIVE 05/24/20 10:05 Urine Cocaine Screen NEGATIVE 05/24/20 10:05 U Marijuana (THC) Screen NEGATIVE 05/24/20 10:05 Blood Type O POSITIVE 05/24/20 10:56 Antibody Screen NEGATIVE 05/24/20 10:56 Plan Plan of Treatment: d/c home. F/up at health dept or at [facility] in one week for incision check Time Spent: Less than 30 Minutes
[2020-05-26 12:48] VITALS: BP 101/51
--- NOTE | 2020-05-31 18:15 | Operative Report ---
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 Very tight nuchal cord and very thin cord and small placenta. Placenta and cord sent for pathology. IVF 1000ml, UOP 300ml, EBL 600ml. Normal bilateral tubes/ovaries PROCEDURE: Anesthesia provider: [Akosua Oliveira CRNA] Urine output: [300ml] IV fluids: [100ml] Indications: [30yo at 40+0ega presented for IOL due to IUGR at less than 6%. She has has prior vaginal deliveries. Cytotec Initiated for IOL and intermittent late decels. 4 hours after cytotec was placed Cooks catheter placed. However, unable to start pitocin after the 1 hour break due to contract ions q 1-2 minutes and decreased variability. Cooks catheter removed and cervix was 4cm and FHR tracing with intermittent decels and decreased variability. Patient position changed and multiple attempts for intrauterine recussitation. AROM performed to attempt to place internal monitors. FSE placed and persistent minimal variability and worsening late and variable decelerations. Reviewed recommendations for Primary C/S urgently due to non reassuring FHRTs. The risks, benefits, alternatives were reviewed and she desires to proceed with Primary section.] Procedure: The patient was taken to the operating room where spinal anesthesia was obtained and found to be adequate. She was then prepped and draped in the normal sterile fashion and placed in the dorsal supine position with a leftward tilt. A Pfannenstiel skin incision was then made and carried through to the underlying layers of the fascia with the scalpel. The fascia was incised in the midline and the incision extended laterally with the Velazquez scissors. The superior aspect of the fascial incision was then grasped with Esvin clamps elevated and the underlying rectus muscles dissected off [bluntly]. Attention w as then turned to the inferior aspect of the fascial incision which in a similar fashion was grasped, tented up with Esvin clamps, and the rectus muscles dissected off [bluntly]. The rectus muscles were then in the midline and the peritoneum at the amount identified and entered [bluntly]. The peritoneal incision was then extended superiorly and inferiorly with good visualization of the bladder. The bladder blade was inserted and the vesicouterine peritoneum identified grasped with Swedish pickups and entered sharply with the Metzenbaum scissors. This incision was then extended laterally with the Metzenbaum scissors and a bladder flap created digitally. The bladder blade was then reinserted and the lower uterine segment incised in a transverse fashion with the scalpel. The uterine incision was then extended bluntly. The bladder blade was removed and the 's head was delivered from cephalic presentation atraumatically. The nose and mouth were suctioned and the cord doubly clamped and cut. And the was handed off to waiting pediatricians. The placenta was then delivered spontaneously and the uterus exteriorized and cleared of all clots and debris. The uterine incision was then repaired with 1- 0 Vicryl in a running locked fashion. A second layer of the same suture was used to obtain hemostasis via imbrication of the initial layer. The bladder flap was then repaired with 3-0 chromic in a running fashion. The uterus was returned to the patient's abdomen and All operative sites were noted to be hemostatic. The fascia was reapproximated with 0 Vicryl in a running fashion from each lateral edge to the midline. The skin was closed with 3-0 Monocryl in a running subcuticular fashion with overlying Dermabond for additional dressing as well as wound closure. The patient tolerated the procedure well. Sponge lap needle and instrument counts are correct times 2. 2 g of Ancef were given prior to skin incision. The patient was taken to the recovery area awake and in stable condition.
== END 2020-05-26 14:00 | disposition home or self-care (01) | DRG 787 ==
LOC: LR 09:41 → 2S 21:42
PROVIDERS: ADMIT Student in an Organized Health Care Education/Training Program; ATTEND Student in an Organized Health Care Education/Training Program
PROC: 10D00Z1 Extraction of Products of Conception, Low, Open Approach (ICD-10-PCS; principal; 2020-05-24)
DX: O36.5930 Maternal care for other known or suspected poor fetal growth, third trimester, not applicable or unspecified (principal); O98.32 Other infections with a predominantly sexual mode of transmission complicating childbirth; O76 Abnormality in fetal heart rate and rhythm complicating labor and delivery; Z20.828 Contact with and (suspected) exposure to other viral communicable diseases; A60.9 Anogenital herpesviral infection, unspecified; O34.211 Maternal care for low transverse scar from previous cesarean delivery; R87.612 Low grade squamous intraepithelial lesion on cytologic smear of cervix (LGSIL); O99.284 Endocrine, nutritional and metabolic diseases complicating childbirth; E03.9 Hypothyroidism, unspecified; O69.1XX0 Labor and delivery complicated by cord around neck, with compression, not applicable or unspecified; Z88.1 Allergy status to other antibiotic agents; Z3A.40 40 weeks gestation of pregnancy; Z37.0 Single live birth
CPT/HCPCS: 1961; 36415; 80307; 81001; 85027; 86592; 86850; 86900; 86901; 88307; 94760; 94799; 99140; J0131; J0690; J1170; J1580; J1885; J2210; J2270; J2370; J2405; J2590; J2795; J3010; J3105; J3490; J7060; J7120